=== PATIENT | female | born 1935 | race Caucasian/White ===

== ENCOUNTER → 2016-09-29 | Outpatient (CLI) | payer OTHER ==
[~2016-09-29] MED LIST: ADVIN25/60 INH; ASPI81TA28 PO; CHOL100010 PO; CITA20TA4 PO; CYAN100048 PO; GABA600T PO; IPRA1AER2 INH; LEVO100T PO; LISI-725 PO; METO1TAB68 PO; OMEG10007 PO; TIOTCAP INH; TOPI25TA10 PO
--- NOTE | 2016-09-29 15:46 | DIAGNOSTIC IMAGING REPORT ---
L-SPINE MIN 4 VIEWS ROUTINE CLINICAL HISTORY: Lower back pain. COMPARISON: None FINDINGS: There are pelvic surgical clips. There is mild S-shaped scoliosis of the lumbar spine. Vertebral body heights are maintained. There is no acute fracture. Moderate to marked multilevel disc space narrowing, osteophytosis and vacuum disc phenomenon is noted. IMPRESSION: 1. No acute lumbar spine fracture or subluxation. 2. Moderate to severe multilevel degenerative disc disease and facet arthrosis of the lumbar spine. 3. Slight anterolisthesis of L5 on S1 and retrolisthesis of L4 and L5. 4. Mild S-shaped curvature of the lumbar spine. Electronically signed by: Jacob Pickering M.D. 09/29/2016 3:44 PM Dictated Date/Time: 09/29/2016 3:43 PM
[2016-09-29 18:05] LABS: BLOOD UREA NITROGEN 28 mg/dl (7-18); BUN/CREATININE RATIO 21.6 (10-20); CALCIUM 9.1 mg/dl (8.5-10.1); CARBON DIOXIDE 27 mmol/L (21-32); CHLORIDE 106 mmol/L (98-107); GLUCOSE 103 mg/dl (70-99); SODIUM 142 mmol/L (136-145)
[2016-09-29 18:15] LABS: THYROID STIMULATING HORMONE 0.037 uIu/ml (0.300-4.500)
== END | disposition home or self-care (01) ==
LOC: C.RADPV 14:56
PROVIDERS: ATTEND Family Medicine
DX: M54.9 Dorsalgia, unspecified (principal); E03.9 Hypothyroidism, unspecified; I10 Essential (primary) hypertension

== ENCOUNTER → 2016-10-14 | Outpatient (CLI) | payer OTHER | END | disposition home or self-care (01) | LOC: C.MAMM 14:36 | PROVIDERS: ATTEND Family Medicine | DX: M81.0 Age-related osteoporosis without current pathological fracture (principal) ==

== ENCOUNTER → 2016-11-04 | Outpatient (CLI) | payer OTHER ==
--- NOTE | 2016-11-04 13:37 | DIAGNOSTIC IMAGING REPORT ---
CHEST 2 VIEWS ROUTINE CLINICAL HISTORY: ASTHMATIC BRONCHITIS dyspnea COMPARISON STUDY: 02/11/2014 FINDINGS: Mild stable cardiomegaly. Lungs are clear. Diaphragms are smooth. IMPRESSION: Mild stable cardiomegaly. The lungs are clear. Electronically signed by: Eduardo Carlson M.D. 11/04/2016 1:35 PM Dictated Date/Time: 11/04/2016 1:35 PM
[2016-11-04 17:34] LABS: BASO % 0.4 %; BASO ABS # 0.03 K/uL (0-0.2); COMPLETE YES; EOS % 2.1 %; HEMATOCRIT 31.8 % (37-47); IG% 0.3 %; LYMPH % 16.1 %; LYMPH ABS # 1.08 K/uL (1.2-3.4); MEAN CELL VOLUME 91.9 fL (80-100); MEAN CORPUSCULAR HEMOGLOBIN 30.9 pg (25-34); MEAN CORPUSCULAR HGB CONC 33.6 g/dl (32-36); MEAN PLATELET VOLUME 9.6 fL (7.4-10.4); MONO % 12.4 %; NEUT % 68.7 %; PLATELET COUNT 200 K/uL (130-400); RED BLOOD COUNT 3.46 M/uL (4.2-5.4)
[2016-11-04 17:53] LABS: BLOOD UREA NITROGEN 20 mg/dl (7-18); BUN/CREATININE RATIO 20.3 (10-20); CALCIUM 9.1 mg/dl (8.5-10.1); CARBON DIOXIDE 28 mmol/L (21-32); CHLORIDE 102 mmol/L (98-107); GLUCOSE 85 mg/dl (70-99); POTASSIUM 3.2 mmol/L (3.5-5.1); SODIUM 138 mmol/L (136-145)
== END | disposition home or self-care (01) ==
LOC: C.RADPV 12:33
PROVIDERS: ATTEND Family Medicine
DX: J45.909 Unspecified asthma, uncomplicated (principal); I10 Essential (primary) hypertension

== ENCOUNTER → 2016-11-21 | Outpatient (CLI) | payer OTHER ==
[2016-11-21 12:35] LABS: BLOOD UREA NITROGEN 27 mg/dl (7-18); BUN/CREATININE RATIO 26.6 (10-20); CALCIUM 8.6 mg/dl (8.5-10.1); CARBON DIOXIDE 29 mmol/L (21-32); CHLORIDE 107 mmol/L (98-107); GLUCOSE 95 mg/dl (70-99); POTASSIUM 4.2 mmol/L (3.5-5.1); SODIUM 140 mmol/L (136-145)
[2016-11-21 12:45] LABS: THYROID STIMULATING HORMONE 0.028 uIu/ml (0.300-4.500)
== END | disposition home or self-care (01) ==
LOC: C.LABPVFM 10:46
PROVIDERS: ATTEND Family Medicine
DX: E03.9 Hypothyroidism, unspecified (principal); E87.6 Hypokalemia

== ENCOUNTER → 2016-12-04 | Outpatient (CLI) | payer OTHER ==
--- NOTE | 2016-12-09 13:02 | CODING QUERY MEDICAL NECESSITY ---
SUPPORTING DIAGNOSIS NEEDED A supporting diagnosis is required for the test/procedure performed on this patient in order for us to be reimbursed by the patient's insurance. Please provide a supporting diagnosis for the following test/procedure listed below next to the test name along with your signature. *If there is no additional diagnosis for this patient that would support the following test/procedure please document that below next to the test/procedure. Test(s)/Procedure(s) that require a supporting diagnosis: * VITAMIN B-12 LEVEL DIAGNOSIS: * DOS: 12/04/16 Provider Signature: Date: Thank you Lyudmila Roy Health Information Management Once completed, please kindly fax back to [phone] For questions please call [phone]
== END | disposition home or self-care (01) ==
LOC: C.LABPVFM 12:08
PROVIDERS: ATTEND Family Medicine
DX: D64.9 Anemia, unspecified (principal)

== ENCOUNTER → 2016-12-29 | Outpatient (CLI) | payer OTHER ==
[~2016-12-29] MED LIST changes: +METO-479 PO; -METO1TAB68 PO
--- NOTE | 2016-12-29 15:50 | MAMMOGRAPHY REPORT ---
BILATERAL DIGITAL SCREENING MAMMOGRAM WITH CAD: 12/29/2016 CLINICAL HISTORY: Routine screening. Patient has no complaints. TECHNIQUE: Bilateral CC and MLO views were obtained. Current study was also evaluated with a Comput er Aided Detection (CAD) system. COMPARISON: Comparison is made to exams dated: 03/13/2015 mammogram, 12/30/2013 mammogram, 12/24/2012 m ammogram, 12/18/2011 mammogram, 12/17/2010 mammogram - [facility], and 01/19/2008. BREAST COMPOSITION: The tissue of both breasts is almost entirely fatty. FINDINGS: A linear scar marker overlies the anterior periareolar left breast. There are mild vascul ar calcifications and scattered benign coarse calcifications in the breasts. No suspicious mass, ar chitectural distortion or cluster of microcalcifications is seen. IMPRESSION: ACR BI-RADS CATEGORY 1: NEGATIVE There is no mammographic evidence of malignancy. A 1 year screening mammogram is recommended. The p atient will receive written notification of the results. Approximately 10% of breast cancers are not detected with mammography. A negative mammographic repor t should not delay biopsy if a clinically suggestive mass is present. Flor Diaz M.D. ay/:12/29/2016 15:44:59 Automotive Title Clerk: Ananya Alberto, [facility] letter sent: Normal 1/2 BI-RADS Code: ACR BI-RADS Category 1: Negative
== END | disposition home or self-care (01) ==
LOC: C.MAMM 13:04
PROVIDERS: ATTEND Family Medicine
DX: Z12.31 Encounter for screening mammogram for malignant neoplasm of breast (principal)

== ENCOUNTER → 2017-02-11 | Outpatient (CLI) | payer OTHER ==
[2017-02-11 12:55] LABS: BLOOD UREA NITROGEN 14 mg/dl (7-18); BUN/CREATININE RATIO 14.9 (10-20); CARBON DIOXIDE 29 mmol/L (21-32); CHLORIDE 102 mmol/L (98-107); CREATININE 0.96 mg/dl (0.60-1.20); GLUCOSE 93 mg/dl (70-99); POTASSIUM 3.7 mmol/L (3.5-5.1); SODIUM 138 mmol/L (136-145)
[2017-02-11 13:01] LABS: CALCIUM 8.6 mg/dl (8.5-10.1)
[2017-02-11 13:05] LABS: THYROID STIMULATING HORMONE 0.205 uIu/ml (0.300-4.500)
== END | disposition home or self-care (01) ==
LOC: C.LABPVFM 10:06
PROVIDERS: ATTEND Family Medicine
DX: I10 Essential (primary) hypertension (principal); E03.9 Hypothyroidism, unspecified

== ENCOUNTER → 2017-06-15 | Outpatient (CLI) | payer OTHER ==
[~2017-06-15] MED LIST changes: -METO-479 PO; +METO1TAB68 PO
[2017-06-15 18:23] LABS: BLOOD UREA NITROGEN 16 mg/dl (7-18); BUN/CREATININE RATIO 17.3 (10-20); CALCIUM 9.2 mg/dl (8.5-10.1); CARBON DIOXIDE 28 mmol/L (21-32); CHLORIDE 100 mmol/L (98-107); CREATININE 0.94 mg/dl (0.60-1.20); GLUCOSE 95 mg/dl (70-99); POTASSIUM 3.5 mmol/L (3.5-5.1); SODIUM 135 mmol/L (136-145)
== END | disposition home or self-care (01) ==
LOC: C.LABPVFM 14:08
PROVIDERS: ATTEND Family Medicine
DX: E03.9 Hypothyroidism, unspecified (principal); I10 Essential (primary) hypertension

== ENCOUNTER → 2017-09-21 | Outpatient (CLI) | payer OTHER ==
[~2017-09-21] MED LIST changes: +METO-479 PO; -METO1TAB68 PO
[2017-09-21 18:34] LABS: BLOOD UREA NITROGEN 14 mg/dl (7-18); CALCIUM 8.8 mg/dl (8.5-10.1); CARBON DIOXIDE 29 mmol/L (21-32); CREATININE 1.08 mg/dl (0.60-1.20); GLUCOSE 98 mg/dl (70-99); POTASSIUM 3.5 mmol/L (3.5-5.1); SODIUM 133 mmol/L (136-145)
== END | disposition home or self-care (01) ==
LOC: C.LABPVFM 15:02
PROVIDERS: ATTEND Family Medicine
DX: E03.9 Hypothyroidism, unspecified (principal)

== ENCOUNTER → 2017-11-13 | Outpatient (CLI) | payer OTHER ==
--- NOTE | 2017-11-13 15:12 | DIAGNOSTIC IMAGING REPORT ---
TWO VIEW CHEST CLINICAL HISTORY: Edema. FINDINGS: PA and lateral chest radiographs are compared to study dated 11/04/2016. The heart is markedly enlarged and there is atherosclerotic calcification of the thoracic aorta. The pulmonary vasculature is noncongested. Enlargement of the central pulmonary arteries suggests pulmonary artery hypertension. Chronic interstitial thickening is similar to previous. No airspace consolidation or pleural effusion is identified. There is no pneumothorax. The skeletal structures are osteopenic. Degenerative change is seen throughout the thoracic spine. IMPRESSION: Cardiomegaly with no acute cardiopulmonary abnormality. Electronically signed by: Odin Luis M.D. 11/13/2017 3:11 PM Dictated Date/Time: 11/13/2017 3:10 PM
== END | disposition home or self-care (01) ==
LOC: C.RADPV 14:52
PROVIDERS: ATTEND Family Medicine
DX: I51.7 Cardiomegaly (principal)

== ENCOUNTER → 2017-12-08 | Outpatient (CLI) | payer OTHER | END | disposition home or self-care (01) | LOC: C.LABPVFM 11:03 | PROVIDERS: ATTEND Family Medicine | DX: E03.9 Hypothyroidism, unspecified (principal) ==

== ENCOUNTER → 2017-12-31 | Outpatient (CLI) | payer OTHER ==
--- NOTE | 2018-01-04 07:49 | MAMMOGRAPHY REPORT ---
BILATERAL DIGITAL SCREENING MAMMOGRAM TOMOSYNTHESIS WITH CAD: 12/31/2017 CLINICAL HISTORY: Routine screening. Patient has no complaints. TECHNIQUE: Breast tomosynthesis in addition to standard 2D mammography was performed. Current study was also evaluated with a Computer Aided Detection (CAD) system. COMPARISON: Comparison is made to exams dated: 12/29/2016 mammogram, 03/13/2015 mammogram, 12/30/2013 ma mmogram, 12/24/2012 mammogram, 12/18/2011 mammogram, and 12/17/2010 mammogram - [facility]. BREAST COMPOSITION: The tissue of both breasts is almost entirely fatty. FINDINGS: No suspicious masses, calcifications, or areas of architectural distortion are noted in ei ther breast. There has been no significant interval change compared to prior exams. Scattered bilate ral benign-appearing calcifications are again noted. A linear scar marker denotes a scar on the left anterior breast. IMPRESSION: ACR BI-RADS CATEGORY 2: BENIGN There is no mammographic evidence of malignancy. A 1 year screening mammogram is recommended. The pa tient will receive written notification of the results. Approximately 10% of breast cancers are not detected with mammography. A negative mammographic report should not delay biopsy if a clinically suggestive mass is present. Doris Baker M.D. ah/:12/31/2017 15:05:01 Director Of Instructional Technology: Ludy Pacheco M, [facility] letter sent: Normal 1/2 BI-RADS Code: ACR BI-RADS Category 2: Benign
== END | disposition home or self-care (01) ==
LOC: C.MAMM 12:58
PROVIDERS: ATTEND Family Medicine
DX: Z12.31 Encounter for screening mammogram for malignant neoplasm of breast (principal)

== ENCOUNTER 2019-07-24 09:55 | Inpatient (IN) ==
[2019-07-24] MEDS ORDERED: ALBUT/IPRATROP 3MG/0.5MG NEB 3 ML VIAL NEB STA (10:15)
[2019-07-24 10:24] LABS: Basophils # (auto) 0.01 K/uL (0-0.2); Basophils % (auto) 0.2 %; Eosinophils # (auto) 0.02 K/uL (0-0.5); Eosinophils % (auto) 0.4 %; Hematocrit (blood only) 33.6 % (37-47); Hemoglobin 11.2 g/dL (12.0-16.0); Immature Granulocytes # (auto) 0.01 K/uL (0.00-0.02); Immature Granulocytes % (auto) 0.2 %; Lymphocytes # (auto) 0.64 K/uL (1.2-3.4); Lymphocytes % (auto) 13.6 %; Mean Corpuscular Hemoglobin 31.5 pg (25-34); Mean Corpuscular Hgb Conc 33.3 g/dL (32-36); Mean Corpuscular Volume 94.6 fL (80-100); Mean Platelet Volume 9.6 fL (7.4-10.4); Monocytes % (auto) 10.6 %; Neutrophils # (auto) 3.54 K/uL (1.4-6.5); Platelet Count 194 K/uL (130-400); RDW Coefficient of Variation 13.9 % (11.5-14.5); RDW Standard Deviation 48.4 fL (36.4-46.3); Red Blood Count 3.55 M/uL (4.2-5.4); White Blood Count 4.72 K/uL (4.8-10.8)
[2019-07-24 10:38] LABS: Appearance Urine Turbid (Clear); Blood Urine 1+ (Negative); Color Urine Dark Yellow; Epithelial Cell Urine Auto >30 /lpf (0-5); Glucose Urine UA Negative (Negative); Ketones Urine Trace (Negative); Leukocyte Esterase Urine 3+ (Negative); Nitrite Urine Negative (Negative); Protein Urine 1+ (Negative); Specific Gravity Urine 1.026 (1.000-1.030); Urobilinogen Urine Negative (Negative); WBC Urine Automated >30 /hpf (0-5); pH Urine 5.5 (4.5-7.5)
[2019-07-24 10:41] LABS: Alanine Aminotransferase 33 U/L (12-78); Albumin Level 3.4 gm/dl (3.4-5.0); Aspartate Aminotransferase 66 U/L (15-37); BUN Creatinine Ratio 23.1 (10-20); Blood Urea Nitrogen 22 mg/dl (7-18); Carbon Dioxide 22 mmol/L (21-32); Chloride 109 mmol/L (98-107); Creatinine Clr Calc Pharmacy 33.2 ml/min; Est GFR (African American) 66.8; Est GFR (Non-African American) 57.6; Glucose 101 mg/dl (70-99); Magnesium 2.1 mg/dl (1.8-2.4); Potassium 3.8 mmol/L (3.5-5.1); Sodium 141 mmol/L (136-145)
[2019-07-24 10:52] LABS: Albumin Globulin Ratio 0.9 (0.9-2); Alkaline Phosphatase 52 U/L (45-117); Bilirubin,Total 0.6 mg/dl (0.2-1); Globulin 3.7 gm/dl (2.5-4.0); Total Protein 7.1 gm/dl (6.4-8.2); Troponin I < 0.015 ng/ml (0-0.045)
[2019-07-24 10:55] LABS: Bilirubin Urine Negative (Negative); Ictotest Urine Negative (Negative)
[2019-07-24 10:57] LABS: Bacteria Urine Automated 2+ (Negative)
--- NOTE | 2019-07-24 10:57 | CT Scan Report ---
CT head/brain wo con CLINICAL HISTORY: 83 years-old Female with fall, hit head. Acute head injury status post fall TECHNIQUE: Multiple axial CT images of the head were obtained without contrast. A dose lowering tech nique was utilized adhering to the principles of ALARA. CT DOSE: 537.48 mGy.cm COMPARISON: Head CT 02/11/2014 FINDINGS: No acute intracranial hemorrhage, midline shift, intracranial mass, hydrocephalus, territorial ischem ia or abnormal extra-axial collection. Age-related involutional changes. Remote right thalamic lacuna r infarction. Patchy white matter hypodensities suggest chronic microvascular ischemic disease. Cereb ral vascular calcifications noted. The calvarium is intact. Prior bilateral cataract repair. The paranasal sinuses, mastoid air cells, a nd middle ear cavities are clear. IMPRESSION: No acute intracranial abnormality or calvarial fracture. The above report was generated using voice recognition software. It may contain grammatical, syntax o r spelling errors. Electronically signed by: Dillon Lockhart M.D. 07/24/2019 10:55 AM
--- NOTE | 2019-07-24 11:09 | XRay Report ---
XR chest 1V portable HISTORY: 83 years-old Female weakness acute weakness COMPARISON: Chest radiograph 01/24/2018 TECHNIQUE: Portable AP view of the chest FINDINGS: Cardiac silhouette is enlarged, unchanged. Calcified plaque of the thoracic aortic arch. Mild promine nce of the pulmonary arteries redemonstrated along with chronic interstitial coarsening. Unchanged bl unting of the right costophrenic angle. No pneumothorax, large pleural effusion or new focal airspace consolidation. Degenerative changes of the shoulders and spine. IMPRESSION: Chronic findings as above without acute process. The above report was generated using voice recognition software. It may contain grammatical, syntax o r spelling errors. Electronically signed by: Dillon Lockhart M.D. 07/24/2019 11:08 AM
[2019-07-24] MEDS ORDERED: CEFEPIME 2,000 MG/20 ML VIAL IV STA (11:37)
[2019-07-24] MEDS ORDERED: FUROSEMIDE 40 MG/4 ML VIAL IV STA (11:38)
[2019-07-24 11:50] LABS: Influenza A virus by PCR Neg for Influ A (Neg); Influenza B virus by PCR Neg for Influ B (Neg)
--- NOTE | 2019-07-24 12:31 | History & Physical Report ---
Date of Service July 24, 2019 Assessment & Plan (1) Weakness: (2) Acute UTI (urinary tract infection): Admits to inpatient PCU on telemetry. Vital signs every 4 hours. Continue cefepime that was started in the ER and would cover for Pseudomonas infection that was present in January 2019 inpatient urine. Follow-up urine cultures. Monitor CBC and CMP daily. BNP pending. Monitor closely p.o. intake and IV fluids to prevent volume overload. DVT prophylaxis Lovenox 40 mg subcu daily. Full code Present on Admission?: Yes (3) Acute bronchitis: Continue low dose of azithromycin to 250 mg as directed. Continue fluticasone 200 MCG's Vilanterol 25 MCG's/dose inhalation 1 puff daily. Continue ipratropium 20 MCG/albuterol 100 MCG's 1 puff inhalation every 6 hours as needed. Present on Admission?: Yes (4) Weight loss: Will consult RD for nutritional assessment. Present on Admission?: Yes (5) Hemifacial spasm: Patient has a right hemifacial spasm for several years. Patient takes topiramate 200 mg p.o. twice daily daily. Continue this medication. Present on Admission?: Yes (6) Hypertension: Continue home medicine metoprolol succinate 100 mg p.o. daily, lisinopril 40 mg p.o. q. a.m. aspirin 81 mg delayed release Present on Admission?: Yes (7) Hypothyroidism: TSH checked in the ER within normal limits, continue home dose of levothyroxine 88 MCG's p.o. every morning Present on Admission?: Yes (8) COPD (chronic obstructive pulmonary disease): As above-see acute bronchitis. Present on Admission?: Yes (9) CHF (congestive heart failure): Pending BNP. Patient appears to be mildly volume overloaded. Will switch p.o. furosemide 40 mg p.o. to 20 IV. Present on Admission?: Yes History of Present Illness Chief Complaint: Cough, generalized weakness and frequent falls Primary Care Provider: Kimberly Michele MD Patient is a 83 years old female with past medical history of hypertension, congestive heart failure, hypothyroidism, COPD, hemifacial spasm, osteoporosis, who was brought by her daughter to the emergency room with a complaint that patient fell 4 times in the past few days. Daughter reports that she was sleeping when this occurred and she did not notice her mother falling but mother reported that to her in the morning. Patient said that her legs were not listening to her and this was related purely to mechanical fall. Patient reports no hypotension or blacking out or any episode of syncope. Patient said she feels otherwise in good health. Patient appetite is okay but she appears very cachectic. Patient has hemifacial spasm for couple of years and she takes topiramate for it. Patient denies fever, chills, chest pain, shortness of breath, abdominal pain, frequency, urgency, hematemesis hematuria or dysuria. Labs are reviewed: Which shows WBCs 4.72, hemoglobin 11.2, hematocrit 33.6, platelets 194, PT 10.9, PTT 25.1, sodium 141, potassium 3.8, chloride 109, BUN 22, GFR 57.6, magnesium 2.1, AST 66, ALT 33 troponin 0 0.015, TSH 1.26. Urine is turbid, with negative nitrates +3+ positive leukocyte esterase white blood cell over 30,WBCs of 14.89, and over 30 epithelial cells 2+ bacteria which appears to be not a clean-catch urine. Influenza A and B both negative. Decision was made to admit patient for urinary tract infection probably Pseudomonas(which was positive in the January 2019 and pansensitive), physical and occupational therapy and possible [facility] additional physical and Occupational Therapy. Allergies Allergy/AdvReac Type Severity Reaction Status Date / Time baclofen Allergy Unknown Tremor Verified 07/24/19 10:27 levetiracetam AdvReac Intermediate MADE FEEL Verified 07/24/19 10:27 FUNNY Home Medications Home Medications Medication Instructions Recorded Confirmed Type aspirin 81 mg tablet,delayed 81 mg PO DAILY #30 tab 02/07/19 07/24/19 Rx release cholecalciferol (vitamin D3) 5,000 5,000 units PO DAILY #30 cap 02/07/19 07/24/19 Rx unit capsule multivitamin 1 tab PO DAILY #30 tab 02/07/19 07/24/19 Rx omega-3 fatty acids 1,000 mg 1,000 mg PO DAILY #30 cap 02/07/19 07/24/19 Rx capsule fluticasone furoate 200 1 puffs INH DAILY #60 ea 02/10/19 07/24/19 Rx mcg-vilanterol 25 mcg/dose inhalation powder cyanocobalamin (vitamin B-12) 1,000 mcg PO DAILY #30 tab 03/22/19 07/24/19 Rx 1,000 mcg tablet furosemide 40 mg tablet 40 mg PO QAM #30 tab 05/24/19 07/24/19 Rx ipratropium 20 mcg-albuterol 100 1 puffs INH Q6H PRN #4 gm 06/07/19 07/24/19 Rx mcg/actuation mist for inhalation topiramate 200 mg tablet 200 mg PO BID 30 Days #60 tab 06/13/19 07/24/19 Rx azithromycin 250 mg PO UD 07/24/19 07/24/19 History levothyroxine 88 mcg PO QAM 07/24/19 07/24/19 History lisinopril 40 mg PO QAM 07/24/19 07/24/19 History metoprolol succinate 100 mg PO DAILY 07/24/19 07/24/19 History potassium chloride 20 meq PO DAILY 07/24/19 07/24/19 History Past Med/Surg History Medical History Blood in stool (Acute) Facial nerve disorder (Acute) Hemifacial spasm (Chronic) Lower leg edema (Chronic) Osteoporosis (Acute) Social History Current Living Situation: Family current occupational status: retired Feels Safe at Home: Yes Smoking Status: Former smoker Review of Systems Review of Systems: All systems reviewed & are unremarkable except as noted in HPI & below Physical Exam Constitutional: WD/WN, vitals as above well developed, + cachectic and + frail appearing Eyes: PERRL, conjunctivae normal, anicteric sclerae ENMT: external ear and nose normal, oropharynx normal Neck: trachea midline, no thyromegaly Respiratory: normal respiratory effort, lungs clear to auscultation Cardiovascular: Heart Sounds: normal S1 and normal S2 Palpation: + palpable S3 Vessels: dorsalis pedis pulses present Extremities: + pedal edema Gastrointestinal (Abdomen): normal bowel sounds, soft, nontender, no hepatosplenomegaly Musculoskeletal: no cyanosis or clubbing, extremities motor strength 5/5 Neurologic: patellar DTR's 2+ bilat, sensation intact Psychiatric: A+Ox3, euthymic affect Lymphatic: no cervical or axillary lymphadenopathy Results & Data Vital Signs (Past 12 Hours) Vital Signs Temp Pulse Pulse Resp BP BP Pulse Ox 07/24/19 12:13 83 20 158/84 H 99 07/24/19 11:13 76 22 135/70 95 07/24/19 10:36 72 20 142/74 H 99 07/24/19 10:32 75 16 95 07/24/19 10:11 95 07/24/19 10:06 36.9 C 77 20 140/82 94 Code Status & VTE Plan Code Status Full code VTE Prophylaxis Plan VTE Prophylaxis will be ordered: Yes PG Care Time/CCT Total # of Minutes Spent Total Time Spent with Patient: Total time spent is greater than 50% in coordination of care (as documented) at patient's floor/unit and/or counseling patient:
[2019-07-24] MEDS ORDERED: MAGNESIUM HYDROXIDE SUSP 30 ML UDC PO PRN (13:56)
[2019-07-24] MEDS ORDERED: SODIUM CHLORIDE 0.9% 1000ML 1,000 ML IV SCH (13:56)
[2019-07-24] MEDS ORDERED: ENOXAPARIN INJ 40 MG/0.4 ML SYR SQ SCH (13:56)
[2019-07-24] MEDS ORDERED: IPRATROPIUM BROMIDE/ALBUTEROL respimat INH INH PRN (13:56)
[2019-07-24] MEDS ORDERED: ACETAMINOPHEN 325 MG TAB PO PRN (13:56)
[2019-07-24] MEDS ORDERED: ALUMINUM/MAGNESIUM SUSP 30 ML UDC PO PRN (13:56)
[2019-07-24] MEDS ORDERED: POLYETHYLENE (MIRALAX) 17 GM PACK PO PRN (13:56)
[2019-07-24] MEDS: ASPIRIN 81 MG ECTAB PO SCH (16:12)
--- NOTE | 2019-07-24 17:45 | Emergency Department Note ---
Entered by Johana Sandoval acting as a scribe for History of Present Illness General Chief complaint: Fall Time Seen by Provider: 07/24/19 10:02 Source: patient and family Mode of arrival: EMS Limitations: no limitations History of Present Illness Provider complaint: Fall Onset (ago): hour(s) (last night) Location: head Pain Consistency: + other (4 episodes) Quality: + other (fall) Associated symptoms: + confusion, + weakness and + other (Additional symptoms: chronic diarrhea, lower extremity edema, chest congestion. Denies: pain, trouble breathing, urinary symptoms, muscle aches); no nausea/vomiting and no syncope Treatments prior to arrival: none The patient is an 83 year old female with a history of hypertension, hypothyroidism, COPD, asthma, bronchitis, pneumonia, and CHF who presents to the Emergency Room with complaints of 4 episodes of falls occurring last night. The patient reports that she fell 4 times because she was too weak to walk. Per family, the patient has been complaining of progressive weakness of a while, and the patient states that she has never felt this weak before. She notes that she hit her head during these falls but did not experience any syncope. She currently denies any pain in her head and elsewhere. One of her family members mentions that the patient lives with her and that she was able to help the patient up after these falls. The patient reports that she saw her PCP a few days ago for bronchitis and that she is currently on an antibiotic for chest congestion. She denies any trouble breathing. The patient also complains of chronic diarrhea, and her family adds that the patient has had moments of confusion characterized by difficulty finding words and increased lower extremity edema compared to baseline. They note that she does not eat much and did not eat anything this morning. The patient otherwise denies any nausea, vomi ting, urinary symptoms, and muscle aches. Her family reports that she takes Lasix every once in a while. Home Medications Home Medications Medication Instructions Recorded Confirmed Type aspirin 81 mg tablet,delayed 81 mg PO DAILY #30 tab 02/07/19 07/24/19 Rx release cholecalciferol (vitamin D3) 5,000 5,000 units PO DAILY #30 cap 02/07/19 07/24/19 Rx unit capsule multivitamin 1 tab PO DAILY #30 tab 02/07/19 07/24/19 Rx omega-3 fatty acids 1,000 mg 1,000 mg PO DAILY #30 cap 02/07/19 07/24/19 Rx capsule fluticasone furoate 200 1 puffs INH DAILY #60 ea 02/10/19 07/24/19 Rx mcg-vilanterol 25 mcg/dose inhalation powder cyanocobalamin (vitamin B-12) 1,000 mcg PO DAILY #30 tab 03/22/19 07/24/19 Rx 1,000 mcg tablet furosemide 40 mg tablet 40 mg PO QAM #30 tab 05/24/19 07/24/19 Rx ipratropium 20 mcg-albuterol 100 1 puffs INH Q6H PRN #4 gm 06/07/19 07/24/19 Rx mcg/actuation mist for inhalation topiramate 200 mg tablet 200 mg PO BID 30 Days #60 tab 06/13/19 07/24/19 Rx azithromycin 250 mg PO UD 07/24/19 07/24/19 History levothyroxine 88 mcg PO QAM 07/24/19 07/24/19 History lisinopril 40 mg PO QAM 07/24/19 07/24/19 History metoprolol succinate 100 mg PO DAILY 07/24/19 07/24/19 History potassium chloride 20 meq PO DAILY 07/24/19 07/24/19 History Allergies Allergy/AdvReac Type Severity Reaction Status Date / Time baclofen Allergy Unknown Tremor Verified 07/24/19 10:27 levetiracetam AdvReac Intermediate MADE FEEL Verified 07/24/19 10:27 FUNNY Past Med/Surg History Medical History Blood in stool (Acute) Facial nerve disorder (Acute) Hemifacial spasm (Chronic) Lower leg edema (Chronic) Osteoporosis (Acute) Social History Preferred Language: Sami Communication Ability: Effective 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 and A total of 10 systems reviewed and were otherwise negative Physical Exam Vital Signs Vital Signs - 24 hr 07/24/19 10:06 07/24/19 10:11 07/24/19 10:32 Temperature 36.9 C Temperature Source Oral Pulse Rate 77 Pulse Rate [Apical] 75 Respiratory Rate 20 16 Respiratory Effort / Characteristics Non-Labored Spontaneous Respiratory Depth Normal Blood Pressure 140/82 Blood Pressure [Left Arm] Blood Pressure Mean 101 Blood Pressure Mean [Left Arm] Pulse Oximetry 94 95 95 Oxygen Delivery Method Room Air Room Air Room Air Sepsis Recent Fever Within 48 Hours No Sepsis New/Unexplained Change in Mental Status No Sepsis Action Taken by Nursing No Action Required 07/24/19 10:36 07/24/19 11:13 07/24/19 12:13 Temperature Temperature Source Pulse Rate Pulse Rate [Apical] 72 76 83 Respiratory Rate 20 22 20 Respiratory Effort / Characteristics Spontaneous Non-Labored Spontaneous Respiratory Depth Normal Normal Blood Pressure Blood Pressure [Left Arm] 142/74 H 135/70 158/84 H Blood Pressure Mean Blood Pressure Mean [Left Arm] 96 91 108 Pulse Oximetry 99 95 99 Oxygen Delivery Method Nebulizer Room Air Room Air Sepsis Recent Fever Within 48 Hours Sepsis New/Unexplained Change in Mental Status Sepsis Action Taken by Nursing GENERAL: Awake, alert, weak-appearing, in no distress HENT: Normocephalic, atraumatic. EYES: Normal conjunctiva. Sclera non-icteric. NECK: Supple. No nuchal rigidity. RESPIRATORY: Clear to auscultation with diminished bases. Normal respiratory effort. CARDIAC: Normal rate. Normal rhythm. Extremities warm and well perfused. GI: Soft, non-distended. No tenderness to palpation. RECTAL: Deferred. MUSCULOSKELETAL: Atraumatic. Chest examination reveals no tenderness. LOWER EXTREMITIES: Calves are equal size bilaterally and 2+ pedal edema. No crepitus. NEURO: No gross sensory or motor deficits noted. No facial droop. No slurred speech. SKIN: Warm and dry. No rash or jaundice noted. Course Course 1004: The patient was evaluated in room B5, and a complete history and physical examination were performed. 1142: I checked on the patient and updated her and her family on her results. The patient is agreeable to the treatment plan. 1147: I reviewed the patient's case with Dr. Hanson - Hospitalist, [facility]. Dr. Hanson will evaluate the patient for further management. Consultations Consultation #1: I reviewed the patient's case with Dr. Hanson - Hospitalist, [facility]. Dr. Hanson will evaluate the patient for further management. Time: 11:47 Administered Medications Aspirin (Ecotrin Ectab) 81 mg PO DAILY CARLOS Stop: 08/23/19 13:55 Last Admin: 07/24/19 16:12 Dose: 81 mg Documented by: [id number] Sodium Chloride (Nss 1000ml) 1,000 mls @ 80 mls/hr IV .[id number] CARLOS Stop: 07/25/19 02:25 Last Admin: 07/24/19 15:20 Dose: 80 mls/hr Documented by: [id number] Miscellaneous (Order Awaiting Action) 1 ea N/A QS CARLOS Stop: 08/23/19 15:59 Last Admin: 07/24/19 16:13 Dose: Not Given Documented by: [id number] Discontinued Medications Albuterol (Duoneb) 3 ml NEB NOW STA Stop: 07/24/19 10:16 Last Admin: 07/24/19 10:30 Dose: 3 ml Documented by: [id number] Furosemide (Lasix) 40 mg IV NOW STA Stop: 07/24/19 11:39 Last Admin: 07/24/19 12:11 Dose: 40 mg Documented by: [id number] Cefepime HCl (Maxipime) 2,000 mg in 20 mls @ 5 mls/min IV NOW STA; Protocol Stop: 07/24/19 11:40 Last Admin: 07/24/19 12:11 Dose: 5 mls/min Documented by: [id number] Medical Decision Making Differential Diagnosis Differential diagnosis: Etiologies such as metabolic, infection, hypo/hyperglycemia, electrolyte abnormalities, cardiac sources, intracerebral event, toxicologic, neurologic, as well as others were entertained. Medical Records Attestation: I reviewed the patient's medical records. Home Medications Current Medication List: was personally reviewed by me Laboratory Data Attestation: I reviewed the patient's lab results. Result diagrams: 07/24/19 10:00 07/24/19 10:00 Lab Results 07/24/19 07/24/19 07/24/19 Range/Units 10:00 10:00 10:20 WBC 4.72 L (4.8-10.8) K/uL RBC 3.55 L (4.2-5.4) M/uL Hgb 11.2 L (12.0-16.0) g/dL Hct 33.6 L (37-47) % MCV 94.6 (80-100) fL MCH 31.5 (25-34) pg MCHC 33.3 (32-36) g/dL RDW Std Deviation 48.4 H (36.4-46.3) fL RDW Coeff of Phan 13.9 (11.5-14.5) % Plt Count 194 (130-400) K/uL MPV 9.6 (7.4-10.4) fL Immature Gran % (Auto) 0.2 % Neut % (Auto) 75.0 % Lymph % (Auto) 13.6 % Geary % (Auto) 10.6 % Eos % (Auto) 0.4 % Baso % (Auto) 0.2 % Immature Gran # (Auto) 0.01 (0.00-0.02) K/uL Neut # (Auto) 3.54 (1.4-6.5) K/uL Lymph # (Auto) 0.64 L (1.2-3.4) K/uL Geary # (Auto) 0.50 (0.11-0.59) K/uL Eos # (Auto) 0.02 (0-0.5) K/uL Baso # (Auto) 0.01 (0-0.2) K/uL Sodium 141 (136-145) mmol/L Potassium 3.8 (3.5-5.1) mmol/L Chloride 109 H (98-107) mmol/L Carbon Dioxide 22 (21-32) mmol/L Anion Gap 10.0 (3-11) BUN 22 H (7-18) mg/dl Creatinine 0.93 (0.6-1.2) mg/dl Est Cr Clr Drug Dosing 33.2 ml/min Est GFR ( Amer) 66.8 Est GFR (Non-Af Amer) 57.6 BUN/Creatinine Ratio 23.1 H (10-20) Glucose 101 H (70-99) mg/dl Calcium 9.0 (8.5-10.1) mg/dl Magnesium 2.1 (1.8-2.4) mg/dl Total Bilirubin 0.6 (0.2-1) mg/dl AST 66 H (15-37) U/L ALT 33 (12-78) U/L Alkaline Phosphatase 52 (45-117) U/L Troponin I < 0.015 (0-0.045) ng/ml NT-Pro-B Natriuret Pep 1261 (0-1800) pg/ml Total Protein 7.1 (6.4-8.2) gm/dl Albumin 3.4 (3.4-5.0) gm/dl Globulin 3.7 (2.5-4.0) gm/dl Albumin/Globulin Ratio 0.9 (0.9-2) TSH 1.260 (0.300-4.500) uIu/ml Urine Color Urine Appearance (Clear) Urine pH (4.5-7.5) Ur Specific Delta (1.000-1.030) Urine Protein (Negative) Urine Glucose (UA) (Negative) Urine Ketones (Negative) Urine Blood (Negative) Urine Nitrite (Negative) Urine Bilirubin (Negative) Urine Urobilinogen (Negative) Ur Leukocyte Esterase (Negative) Urine WBC (Auto) (0-5) /hpf Urine RBC (Auto) (0-4) /hpf U Hyaline Cast (Auto) (0-5) /lpf U Epithel Cells (Auto) (0-5) /lpf Urine Bacteria (Auto) (Negative) Urine Yeast Influenza Type A (PCR) (Neg) Influenza Type B (PCR) (Neg) 07/24/19 07/24/19 Range/Units 10:30 10:30 WBC (4.8-10.8) K/uL RBC (4.2-5.4) M/uL Hgb (12.0-16.0) g/dL Hct (37-47) % MCV (80-100) fL MCH (25-34) pg MCHC (32-36) g/dL RDW Std Deviation (36.4-46.3) fL RDW Coeff of Phan (11.5-14.5) % Plt Count (130-400) K/uL MPV (7.4-10.4) fL Immature Gran % (Auto) % Neut % (Auto) % Lymph % (Auto) % Geary % (Auto) % Eos % (Auto) % Baso % (Auto) % Immature Gran # (Auto) (0.00-0.02) K/uL Neut # (Auto) (1.4-6.5) K/uL Lymph # (Auto) (1.2-3.4) K/uL Geary # (Auto) (0.11-0.59) K/uL Eos # (Auto) (0-0.5) K/uL Baso # (Auto) (0-0.2) K/uL Sodium (136-145) mmol/L Potassium (3.5-5.1) mmol/L Chloride (98-107) mmol/L Carbon Dioxide (21-32) mmol/L Anion Gap (3-11) BUN (7-18) mg/dl Creatinine (0.6-1.2) mg/dl Est Cr Clr Drug Dosing ml/min Est GFR ( Amer) Est GFR (Non-Af Amer) BUN/Creatinine Ratio (10-20) Glucose (70-99) mg/dl Calcium (8.5-10.1) mg/dl Magnesium (1.8-2.4) mg/dl Total Bilirubin (0.2-1) mg/dl AST (15-37) U/L ALT (12-78) U/L Alkaline Phosphatase (45-117) U/L Troponin I (0-0.045) ng/ml NT-Pro-B Natriuret Pep (0-1800) pg/ml Total Protein (6.4-8.2) gm/dl Albumin (3.4-5.0) gm/dl Globulin (2.5-4.0) gm/dl Albumin/Globulin Ratio (0.9-2) TSH (0.300-4.500) uIu/ml Urine Color Dark Yellow Urine Appearance Turbid A (Clear) Urine pH 5.5 (4.5-7.5) Ur Specific Delta 1.026 (1.000-1.030) Urine Protein 1+ H (Negative) Urine Glucose (UA) Negative (Negative) Urine Ketones Trace H (Negative) Urine Blood 1+ H (Negative) Urine Nitrite Negative (Negative) Urine Bilirubin Negative (Negative) Urine Urobilinogen Negative (Negative) Ur Leukocyte Esterase 3+ H (Negative) Urine WBC (Auto) >30 H (0-5) /hpf Urine RBC (Auto) 5-10 H (0-4) /hpf U Hyaline Cast (Auto) 1-5 (0-5) /lpf U Epithel Cells (Auto) >30 H (0-5) /lpf Urine Bacteria (Auto) 2+ H (Negative) Urine Yeast Not Reportable Influenza Type A (PCR) Neg for Influ A (Neg) Influenza Type B (PCR) Neg for Influ B (Neg) Imaging Data Radiologist's Impression: Radiology results as stated below per my review and the radiologist's interpretation: XR chest 1V portable HISTORY: 83 years-old Female weakness acute weakness COMPARISON: Chest radiograph 01/24/2018 TECHNIQUE: Portable AP view of the chest FINDINGS: Cardiac silhouette is enlarged, unchanged. Calcified plaque of the thoracic aortic arch. Mild prominence of the pulmonary arteries redemonstrated along with chronic interstitial coarsening. Unchanged blunting of the right costophrenic angle. No pneumothorax, large pleural effusion or new focal airspace consolidation. Degenerative changes of the shoulders and spine. IMPRESSION: Chronic findings as above without acute process. The above report was generated using voice recognition software. It may contain grammatical, syntax or spelling errors. Electronically signed by: Dillon Lockhart M.D. 07/24/2019 11:[address] head/brain wo con CLINICAL HISTORY: 83 years-old Female with fall, hit head. Acute head injury status post fall TECHNIQUE: Multiple axial CT images of the head were obtained without contrast. A dose lowering technique was utilized adhering to the principles of ALARA. CT DOSE: 537.48 mGy.cm COMPARISON: Head CT 02/11/2014 FINDINGS: No acute intracranial hemorrhage, midline shift, intracranial mass, hydrocephalus, territorial ischemia or abnormal extra-axial collection. Age-related involutional changes. Remote right thalamic lacunar infarction. Patchy white matter hypodensities suggest chronic microvascular ischemic disease. Cerebral vascular calcifications noted. The calvarium is intact. Prior bilateral cataract repair. The paranasal sinuses, mastoid air cells, and middle ear cavities are clear. IMPRESSION: No acute intracranial abnormality or calvarial fracture. The above report was generated using voice recognition software. It may contain grammatical, syntax or spelling errors. Electronically signed by: Dillon Lockhart M.D. 07/24/2019 10:55 AM ECG Data Attestation: I personally reviewed and interpreted this ECG as follows: Indication: + weakness Rate (beats per minute): 76 Rhythm: + normal sinus ECG [place]: + Left axis deviation ECG ST segments: + ST depression (slight lateral); no ST elevation ECG Findings: no PVCs Blood Pressure Blood Pressure Findings: Elevated blood pressure Blood Pressure Disposition: further management by hospitalist NICK Narrative Patient is a 83-year-old female with a past medical history including osteoporosis and facial nerve disorder in addition to hypertension. Recently being treated for bronchitis with azithromycin presenting to the emergency department today with reports of 4 falls overnight and weakness. No report of pain by the patient. Evidently some intermittent confusion but fairly little oriented right now. Complains of some chest congestion. Did not spend any significant amount of time the floor last night. Too weak to ambulate and end orse some worsening lower extremity edema. Is currently on the azithromycin. Denies urinary symptoms or fevers. Afebrile here. Does have 2+ lower extremity edema. Chest x-ray completed look for signs of fluid overload or pneumonia. CXR without signifigant findings. Influenza testing sent. Basic labs are ordered including troponin EKG. Denying active chest pain lower suspicion for acute ACS PE or dissection however. CT the head was completed given reports that she struck her head during the falls and this was without acute traumatic injury. Laboratory studies show no significant leukocytosis and stable baseline anemia. Renal function appears stable without significant elect light abnormalities. No evidence of troponin elevation or TSH abnormality. Urinalysis concerning for possible UTI. Could indicate the underlying reason for her worsening weakness. History of pseudomonal UTI. Pending differentiation started on cefepime. Given her weakness and difficulty in feeling as well as the falls discussed with patient and family believe observation here further in the hospital would be warranted for improvement. Discussed with the hospitalist. Impression & Plan Weakness, Falls, Acute UTI (urinary tract infection) Discharge Plan Visit Data *Final* Discharge Date/Time: 07/24/19 13:21 Chief Complaint: Fall ED Provider: Marquise Lester Discharge Problem: Weakness, Falls, Acute UTI (urinary tract infection) Patient Disposition: Admitted As Inpatient Discharge Instructions Interventions: ED Discharge Assessment Last Done: 07/24/19 13:21 Discharge Problem: Falls Qualifiers: Encounter type: initial encounter Qualified Code(s): W19.XXXA - Unspecified fall, initial encounter The scribe's documentation has been prepared under my direction and personally reviewed by me in its entirety. I confirm that the note above accurately reflects all work, treatment, procedures, and medical decision making performed by me.
[2019-07-24] MEDS: TOPIRAMATE 100 MG TAB PO SCH (21:56)
[2019-07-24] MEDS: HEPARIN SOD 5,000 UNIT/0.5 ML VIAL SC SCH (21:57)
[2019-07-25] MEDS: LEVOTHYROXINE SODIUM 88 MCG TABLET PO SCH (06:23)
[2019-07-25 06:35] LABS: Basophils # (auto) 0.01 K/uL (0-0.2); Basophils % (auto) 0.3 %; Eosinophils # (auto) 0.12 K/uL (0-0.5); Hematocrit (blood only) 28.5 % (37-47); Hemoglobin 9.8 g/dL (12.0-16.0); Immature Granulocytes # (auto) 0.01 K/uL (0.00-0.02); Immature Granulocytes % (auto) 0.3 %; Lymphocytes # (auto) 0.62 K/uL (1.2-3.4); Lymphocytes % (auto) 15.7 %; Mean Corpuscular Hgb Conc 34.4 g/dL (32-36); Mean Corpuscular Volume 93.1 fL (80-100); Mean Platelet Volume 8.7 fL (7.4-10.4); Monocytes # (auto) 0.42 K/uL (0.11-0.59); Monocytes % (auto) 10.7 %; Neutrophils # (auto) 2.76 K/uL (1.4-6.5); Platelet Count 170 K/uL (130-400); RDW Coefficient of Variation 13.8 % (11.5-14.5); RDW Standard Deviation 47.2 fL (36.4-46.3); Red Blood Count 3.06 M/uL (4.2-5.4); White Blood Count 3.94 K/uL (4.8-10.8)
[2019-07-25 07:10] LABS: Estimated Average Glucose 91 mg/dl; Hemoglobin A1C 4.8 % (4.5-5.6)
[2019-07-25 07:13] LABS: Albumin Level 2.6 gm/dl (3.4-5.0); BUN Creatinine Ratio 23.2 (10-20); Calcium 8.2 mg/dl (8.5-10.1); Creatinine Clr Calc Pharmacy 37.4 ml/min; Est GFR (African American) 76.6; Est GFR (Non-African American) 66.1; Potassium 3.2 mmol/L (3.5-5.1)
[2019-07-25 07:18] LABS: Albumin Globulin Ratio 0.9 (0.9-2); Bilirubin,Total 0.5 mg/dl (0.2-1); Total Protein 5.6 gm/dl (6.4-8.2)
[2019-07-25] MEDS: TOPIRAMATE 100 MG TAB PO SCH ×2 (08:49→20:04)
[2019-07-25] MEDS: POTASSIUM CHLORIDE 20 MEQ TABCR PO SCH (08:49)
[2019-07-25] MEDS: HEPARIN SOD 5,000 UNIT/0.5 ML VIAL SC SCH ×2 (08:49→20:03)
[2019-07-25] MEDS: AZITHROMYCIN 250 MG TAB PO SCH (08:49)
[2019-07-25] MEDS: CYANOCOBALAMIN 500 MCG TABLET (VITAMIN B-12) PO SCH (08:50)
[2019-07-25] MEDS: ASPIRIN 81 MG ECTAB PO SCH (08:50)
[2019-07-25] MEDS: METOPROLOL SUCC 50MG EXT REL TAB PO SCH (08:50)
[2019-07-25] MEDS: LISINOPRIL 40 MG TAB PO SCH (08:50)
[2019-07-25] MEDS: OMEGA-3 (PURIFIED FISH OIL) 1 GM CAP PO SCH (08:50)
[2019-07-25] MEDS: MULTIVITAMIN TAB PO SCH (08:50)
[2019-07-25] MEDS: CHOLECALCIFEROL 1,000 UNITS TAB PO SCH (08:51)
--- NOTE | 2019-07-25 10:37 | Hospitalist Progress Note ---
Date of Service July 25, 2019 Assessment & Plan (1) Acute UTI (urinary tract infection): Continue admit to inpatient PCU on telemetry. Vital signs every 4 hours. Continue cefepime that was started in the ER and would cover for Pseudomonas infection that was present in January 2019 inpatient urine. Follow-up urine cultures. Monitor CBC and CMP daily. BNP pending. Monitor closely p.o. intake and IV fluids to prevent volume overload. DVT prophylaxis Lovenox 40 mg subcu daily. Full code (2) Weakness: As above.PT/OT follow up recommendations. Present on Admission?: Yes (3) Acute bronchitis: Continue fluticasone 200 MCG's Vilanterol 25 MCG's/dose inhalation 1 puff daily. Continue ipratropium 20 MCG/albuterol 100 MCG's 1 puff inhalation every 6 hours as needed. Present on Admission?: Yes (4) Weight loss: Appreciate RD nutritional assessment. Present on Admission?: Yes (5) Hemifacial spasm: Patient has a right hemifacial spasm for several years. Patient takes topiramate 200 mg p.o. twice daily daily. Continue this medication. Present on Admission?: Yes (6) Hypertension: Continue home medicine metoprolol succinate 100 mg p.o. daily, lisinopril 40 mg p.o. q. a.m. aspirin 81 mg delayed release Present on Admission?: Yes (7) Hypothyroidism: TSH checked in the ER within normal limits, continue home dose of levothyroxine 88 MCG's p.o. every morning Present on Admission?: Yes (8) COPD (chronic obstructive pulmonary disease): As above-see acute bronchitis. Present on Admission?: Yes (9) CHF (congestive heart failure): BNP normal 1261. Pt is euvolemic now. Plan to switch to pt home dose of Furosemide 40 mg PO. Present on Admission?: Yes Subjective Patient seen and examined at the bedside. Sitting up in the chair. Physical and occupational therapy ongoing. Slowly improving. P.o. intake is slowly improving as well. Patient denies fever, chills, chest pain, shortness of breath, abdominal pain, frequency, urgency. Patient reports no new fall. Afebrile. Review of Systems Review of Systems: All systems reviewed & are unremarkable except as noted in HPI & below Physical Exam Constitutional: WD/WN, vitals as above well developed, + cachectic and + frail appearing Eyes: PERRL, conjunctivae normal, anicteric sclerae ENMT: external ear and nose normal, oropharynx normal Neck: trachea midline, no thyromegaly Respiratory: normal respiratory effort, lungs clear to auscultation Cardiovascular: Heart Sounds: normal S1 and normal S2 Palpation: + palpable S3 Vessels: dorsalis pedis pulses present Extremities: + pedal edema Gastrointestinal (Abdomen): normal bowel sounds, soft, nontender, no hepatosplenomegaly Musculoskeletal: no cyanosis or clubbing, extremities motor strength 5/5 Neurologic: patellar DTR's 2+ bilat, sensation intact Psychiatric: A+Ox3, euthymic affect Lymphatic: no cervical or axillary lymphadenopathy Results & Data Vital Signs (Past 12 Hours) Vital Signs Temp Pulse Resp BP Pulse Ox 07/25/19 08:05 36.6 C 85 18 142/80 H 92 07/25/19 04:10 36.6 C 61 16 132/68 96 07/24/19 23:37 36.6 C 64 18 138/66 95 PG Care Time/CCT Total # of Minutes Spent Total Time Spent with Patient: Total time spent is greater than 50% in coordination of care (as documented) at patient's floor/unit and/or counseling patient:
[2019-07-25] MEDS: CEFEPIME 1,000 MG in SYRINGE 0 ML IV SCH (12:31)
[2019-07-25] MEDS: BUDESONIDE/FORMOTEROL FUMARATE 160/4.5 60 PUFFS/INHALER INH SCH (20:00)
[2019-07-26] MEDS: LEVOTHYROXINE SODIUM 88 MCG TABLET PO SCH (06:04)
[2019-07-26 06:11] LABS: Basophils # (auto) 0.02 K/uL (0-0.2); Basophils % (auto) 0.6 %; Eosinophils # (auto) 0.18 K/uL (0-0.5); Eosinophils % (auto) 5.4 %; Hematocrit (blood only) 30.2 % (37-47); Hemoglobin 10.2 g/dL (12.0-16.0); Lymphocytes # (auto) 0.91 K/uL (1.2-3.4); Lymphocytes % (auto) 27.4 %; Mean Corpuscular Hemoglobin 31.7 pg (25-34); Mean Corpuscular Hgb Conc 33.8 g/dL (32-36); Mean Corpuscular Volume 93.8 fL (80-100); Mean Platelet Volume 8.9 fL (7.4-10.4); Neutrophils # (auto) 1.81 K/uL (1.4-6.5); Neutrophils % (auto) 54.6 %; Platelet Count 171 K/uL (130-400); RDW Coefficient of Variation 13.7 % (11.5-14.5); RDW Standard Deviation 47.4 fL (36.4-46.3); Red Blood Count 3.22 M/uL (4.2-5.4); White Blood Count 3.32 K/uL (4.8-10.8)
[2019-07-26 06:48] LABS: Albumin Level 2.7 gm/dl (3.4-5.0); BUN Creatinine Ratio 17.1 (10-20); Calcium 8.6 mg/dl (8.5-10.1); Est GFR (African American) 82.6; Est GFR (Non-African American) 71.3; Potassium 3.8 mmol/L (3.5-5.1)
[2019-07-26 06:51] LABS: Bilirubin,Total 0.4 mg/dl (0.2-1); Globulin 2.8 gm/dl (2.5-4.0); Total Protein 5.5 gm/dl (6.4-8.2)
[2019-07-26] MEDS: METOPROLOL SUCC 50MG EXT REL TAB PO SCH (08:17)
[2019-07-26] MEDS: CYANOCOBALAMIN 500 MCG TABLET (VITAMIN B-12) PO SCH (08:17)
[2019-07-26] MEDS: TOPIRAMATE 100 MG TAB PO SCH ×2 (08:17→20:14)
[2019-07-26] MEDS: CHOLECALCIFEROL 1,000 UNITS TAB PO SCH (08:17)
[2019-07-26] MEDS: MULTIVITAMIN TAB PO SCH (08:17)
[2019-07-26] MEDS: POTASSIUM CHLORIDE 20 MEQ TABCR PO SCH (08:18)
[2019-07-26] MEDS: AZITHROMYCIN 250 MG TAB PO SCH (08:18)
[2019-07-26] MEDS: ASPIRIN 81 MG ECTAB PO SCH (08:18)
[2019-07-26] MEDS: BUDESONIDE/FORMOTEROL FUMARATE 160/4.5 60 PUFFS/INHALER INH SCH ×2 (08:18→20:14)
[2019-07-26] MEDS: HEPARIN SOD 5,000 UNIT/0.5 ML VIAL SC SCH ×2 (08:18→20:14)
[2019-07-26] MEDS: OMEGA-3 (PURIFIED FISH OIL) 1 GM CAP PO SCH (08:18)
[2019-07-26] MEDS: LISINOPRIL 40 MG TAB PO SCH (08:18)
[2019-07-26] MEDS: FUROSEMIDE 40 MG TAB PO SCH (09:14)
--- NOTE | 2019-07-26 09:26 | Hospitalist Progress Note ---
Date of Service July 26, 2019 Assessment & Plan (1) Acute UTI (urinary tract infection): Continue admit to inpatient PCU on telemetry. Vital signs every 4 hours. Continue cefepime that was started in the ER and would cover for Pseudomonas infection that was present in January 2019 inpatient urine. Follow-up urine cultures. Monitor CBC and CMP daily. BNP pending. Monitor closely p.o. intake and IV fluids to prevent volume overload. DVT prophylaxis Lovenox 40 mg subcu daily. Full code (2) Weakness: As above.PT/OT follow up recommendations. (3) Acute bronchitis: Continue fluticasone 200 MCG's Vilanterol 25 MCG's/dose inhalation 1 puff daily. Continue ipratropium 20 MCG/albuterol 100 MCG's 1 puff inhalation every 6 hours as needed. (4) Weight loss: Appreciate RD nutritional assessment. (5) Hemifacial spasm: Patient has a right hemifacial spasm for several years. Patient takes topiramate 200 mg p.o. twice daily daily. Continue this medication. (6) Hypertension: Continue home medicine metoprolol succinate 100 mg p.o. daily, lisinopril 40 mg p.o. q. a.m. aspirin 81 mg delayed release (7) Hypothyroidism: TSH checked in the ER within normal limits, continue home dose of levothyroxine 88 MCG's p.o. every morning (8) COPD (chronic obstructive pulmonary disease): As above-see acute bronchitis. (9) CHF (congestive heart failure): BNP normal 1261. Pt is euvolemic now. Plan to switch to pt home dose of Furosemide 40 mg PO. Subjective Patient seen and examined at the bedside. Sitting up in the chair. Physical and occupational therapy ongoing. Slowly improving. P.o. intake is slowly improving as well. Patient denies fever, chills, chest pain, shortness of breath, abdominal pain, frequency, urgency. Patient reports no new fall. Afebrile. Review of Systems Review of Systems: All systems reviewed & are unremarkable except as noted in HPI & below Physical Exam Constitutional: WD/WN, vitals as above well developed, + cachectic and + frail appearing Eyes: PERRL, conjunctivae normal, anicteric sclerae ENMT: external ear and nose normal, oropharynx normal Neck: trachea midline, no thyromegaly Respiratory: normal respiratory effort, lungs clear to auscultation Cardiovascular: Heart Sounds: normal S1 and normal S2 Palpation: + palpable S3 Vessels: dorsalis pedis pulses present Extremities: + pedal edema Gastrointestinal (Abdomen): normal bowel sounds, soft, nontender, no hepatosplenomegaly Musculoskeletal: no cyanosis or clubbing, extremities motor strength 5/5 Neurologic: patellar DTR's 2+ bilat, sensation intact Psychiatric: A+Ox3, euthymic affect Lymphatic: no cervical or axillary lymphadenopathy Results & Data Vital Signs (Past 12 Hours) Vital Signs Temp Pulse Pulse Pulse Resp BP Pulse Ox 07/26/19 08:00 36.9 C 67 16 150/76 H 95 07/26/19 03:54 36.4 C L 55 L 16 150/80 H 94 07/26/19 00:00 69 07/25/19 23:44 36.4 C L 73 16 150/86 H 97 PG Care Time/CCT Total # of Minutes Spent Total Time Spent with Patient: Total time spent is greater than 50% in coordination of care (as documented) at patient's floor/unit and/or counseling patient:
[2019-07-26] MEDS: CEFEPIME 1,000 MG in SYRINGE 0 ML IV SCH (12:48)
[2019-07-26] MEDS ORDERED: POTASSIUM CHLORIDE 20 MEQ TABCR PO ONE (13:45)
[2019-07-27] MEDS: LEVOTHYROXINE SODIUM 88 MCG TABLET PO SCH (05:40)
[2019-07-27 06:53] LABS: Basophils # (auto) 0.02 K/uL (0-0.2); Basophils % (auto) 0.6 %; Eosinophils # (auto) 0.19 K/uL (0-0.5); Eosinophils % (auto) 5.4 %; Hematocrit (blood only) 31.4 % (37-47); Hemoglobin 10.6 g/dL (12.0-16.0); Immature Granulocytes # (auto) 0.01 K/uL (0.00-0.02); Immature Granulocytes % (auto) 0.3 %; Lymphocytes # (auto) 0.99 K/uL (1.2-3.4); Lymphocytes % (auto) 28.1 %; Mean Corpuscular Hemoglobin 31.7 pg (25-34); Mean Corpuscular Hgb Conc 33.8 g/dL (32-36); Mean Platelet Volume 9.2 fL (7.4-10.4); Monocytes % (auto) 11.4 %; Neutrophils # (auto) 1.91 K/uL (1.4-6.5); Neutrophils % (auto) 54.2 %; Platelet Count 210 K/uL (130-400); RDW Coefficient of Variation 13.9 % (11.5-14.5); RDW Standard Deviation 47.9 fL (36.4-46.3); Red Blood Count 3.34 M/uL (4.2-5.4); White Blood Count 3.52 K/uL (4.8-10.8)
[2019-07-27 07:31] LABS: Albumin Level 3.1 gm/dl (3.4-5.0); BUN Creatinine Ratio 16.2 (10-20); Bilirubin,Total 0.4 mg/dl (0.2-1); Creatinine Clr Calc Pharmacy 34.8 ml/min; Est GFR (African American) 70.4; Est GFR (Non-African American) 60.8; Globulin 3.2 gm/dl (2.5-4.0); Potassium 3.8 mmol/L (3.5-5.1); Total Protein 6.3 gm/dl (6.4-8.2)
[2019-07-27] MEDS: CHOLECALCIFEROL 1,000 UNITS TAB PO SCH (08:03)
[2019-07-27] MEDS: TOPIRAMATE 100 MG TAB PO SCH ×2 (08:03→20:11)
[2019-07-27] MEDS: POTASSIUM CHLORIDE 20 MEQ TABCR PO SCH (08:03)
[2019-07-27] MEDS: METOPROLOL SUCC 50MG EXT REL TAB PO SCH (08:03)
[2019-07-27] MEDS: OMEGA-3 (PURIFIED FISH OIL) 1 GM CAP PO SCH (08:03)
[2019-07-27] MEDS: CYANOCOBALAMIN 500 MCG TABLET (VITAMIN B-12) PO SCH (08:03)
[2019-07-27] MEDS: MULTIVITAMIN TAB PO SCH (08:03)
[2019-07-27] MEDS: LISINOPRIL 40 MG TAB PO SCH (08:03)
[2019-07-27] MEDS: ASPIRIN 81 MG ECTAB PO SCH (08:04)
[2019-07-27] MEDS: HEPARIN SOD 5,000 UNIT/0.5 ML VIAL SC SCH ×2 (08:04→20:11)
[2019-07-27] MEDS: BUDESONIDE/FORMOTEROL FUMARATE 160/4.5 60 PUFFS/INHALER INH SCH ×2 (08:04→20:11)
[2019-07-27] MEDS: FUROSEMIDE 40 MG TAB PO SCH (08:04)
--- NOTE | 2019-07-27 09:58 | Hospitalist Progress Note ---
Date of Service July 27, 2019 Assessment & Plan (1) Acute UTI (urinary tract infection): Continue admit to inpatient PCU on telemetry. Vital signs every 4 hours. Continue cefepime that was started in the ER and would cover for Pseudomonas infection that was present in January 2019 inpatient urine. Follow-up urine cultures. Monitor CBC and CMP daily. BNP pending. Monitor closely p.o. intake and IV fluids to prevent volume overload. DVT prophylaxis Lovenox 40 mg subcu daily. Disposition home most likely with home health and caregiver. Full code (2) Weakness: As above.PT/OT follow up recommendations. (3) Acute bronchitis: Continue fluticasone 200 MCG's Vilanterol 25 MCG's/dose inhalation 1 puff daily. Continue ipratropium 20 MCG/albuterol 100 MCG's 1 puff inhalation every 6 hours as needed. (4) Weight loss: Appreciate RD nutritional assessment. (5) Hemifacial spasm: Patient has a right hemifacial spasm for several years. Patient takes topiramate 200 mg p.o. twice daily daily. Continue this medication. (6) Hypertension: Continue home medicine metoprolol succinate 100 mg p.o. daily, lisinopril 40 mg p.o. q. a.m. aspirin 81 mg delayed release (7) Hypothyroidism: TSH checked in the ER within normal limits, continue home dose of levothyroxine 88 MCG's p.o. every morning (8) COPD (chronic obstructive pulmonary disease): As above-see acute bronchitis. (9) CHF (congestive heart failure): BNP normal 1261. Pt is euvolemic now. Plan to switch to pt home dose of Furosemide 40 mg PO. Subjective Patient seen and examined at the bedside. Sitting up in the chair. Physical and occupational therapy ongoing. P.o. intake is slowly improving as well. Patient denies fever, chills, chest pain, shortness of breath, abdominal pain, frequency, urgency. Patient reports no new fall. Afebrile. Review of Systems Review of Systems: All systems reviewed & are unremarkable except as noted in HPI & below Physical Exam Constitutional: WD/WN, vitals as above well developed, + cachectic and + frail appearing Eyes: PERRL, conjunctivae normal, anicteric sclerae ENMT: external ear and nose normal, oropharynx normal Neck: trachea midline, no thyromegaly Respiratory: normal respiratory effort, lungs clear to auscultation Cardiovascular: Heart Sounds: normal S1 and normal S2 Palpation: + palpable S3 Vessels: dorsalis pedis pulses present Extremities: + pedal edema Gastrointestinal (Abdomen): normal bowel sounds, soft, nontender, no hepatosplenomegaly Musculoskeletal: no cyanosis or clubbing, extremities motor strength 5/5 Neurologic: patellar DTR's 2+ bilat, sensation intact Psychiatric: A+Ox3, euthymic affect Lymphatic: no cervical or axillary lymphadenopathy Results & Data Vital Signs (Past 12 Hours) Vital Signs Temp Pulse Resp BP Pulse Ox 07/27/19 07:59 36.8 C 65 16 151/80 H 93 07/27/19 03:30 36.3 C L 92 H 16 134/71 96 07/27/19 00:00 36.4 C L 62 18 146/85 H 97 PG Care Time/CCT Total # of Minutes Spent Total Time Spent with Patient: Total time spent is greater than 50% in coordination of care (as documented) at patient's floor/unit and/or counseling patient:
[2019-07-27] MEDS: CEFEPIME 1,000 MG in SYRINGE 0 ML IV SCH (12:28)
[2019-07-28] MEDS: LEVOTHYROXINE SODIUM 88 MCG TABLET PO SCH (05:48)
[2019-07-28 05:52] LABS: Basophils # (auto) 0.02 K/uL (0-0.2); Basophils % (auto) 0.5 %; Eosinophils # (auto) 0.14 K/uL (0-0.5); Eosinophils % (auto) 3.8 %; Hematocrit (blood only) 30.7 % (37-47); Hemoglobin 10.5 g/dL (12.0-16.0); Immature Granulocytes # (auto) 0.03 K/uL (0.00-0.02); Immature Granulocytes % (auto) 0.8 %; Lymphocytes # (auto) 0.91 K/uL (1.2-3.4); Lymphocytes % (auto) 24.4 %; Mean Corpuscular Hemoglobin 31.9 pg (25-34); Mean Corpuscular Hgb Conc 34.2 g/dL (32-36); Mean Corpuscular Volume 93.3 fL (80-100); Mean Platelet Volume 8.8 fL (7.4-10.4); Monocytes % (auto) 13.4 %; Neutrophils # (auto) 2.13 K/uL (1.4-6.5); Neutrophils % (auto) 57.1 %; Platelet Count 211 K/uL (130-400); RDW Standard Deviation 47.7 fL (36.4-46.3); Red Blood Count 3.29 M/uL (4.2-5.4); White Blood Count 3.73 K/uL (4.8-10.8)
[2019-07-28 06:22] LABS: Albumin Level 2.9 gm/dl (3.4-5.0); BUN Creatinine Ratio 22.1 (10-20); Calcium 9.2 mg/dl (8.5-10.1); Creatinine Clr Calc Pharmacy 36.9 ml/min; Est GFR (African American) 75.5; Est GFR (Non-African American) 65.2; Potassium 3.3 mmol/L (3.5-5.1)
[2019-07-28 06:25] LABS: Albumin Globulin Ratio 0.9 (0.9-2); Bilirubin,Total 0.3 mg/dl (0.2-1); Globulin 3.3 gm/dl (2.5-4.0); Total Protein 6.2 gm/dl (6.4-8.2)
[2019-07-28] MEDS: MULTIVITAMIN TAB PO SCH (08:31)
[2019-07-28] MEDS: CHOLECALCIFEROL 1,000 UNITS TAB PO SCH (08:31)
[2019-07-28] MEDS: METOPROLOL SUCC 50MG EXT REL TAB PO SCH (08:31)
[2019-07-28] MEDS: TOPIRAMATE 100 MG TAB PO SCH (08:32)
[2019-07-28] MEDS: POTASSIUM CHLORIDE 20 MEQ TABCR PO SCH (08:32)
[2019-07-28] MEDS: OMEGA-3 (PURIFIED FISH OIL) 1 GM CAP PO SCH (08:32)
[2019-07-28] MEDS: BUDESONIDE/FORMOTEROL FUMARATE 160/4.5 60 PUFFS/INHALER INH SCH (08:32)
[2019-07-28] MEDS: ASPIRIN 81 MG ECTAB PO SCH (08:32)
[2019-07-28] MEDS: FUROSEMIDE 40 MG TAB PO SCH (08:32)
[2019-07-28] MEDS: LISINOPRIL 40 MG TAB PO SCH (08:33)
[2019-07-28] MEDS: HEPARIN SOD 5,000 UNIT/0.5 ML VIAL SC SCH (08:33)
[2019-07-28] MEDS: CYANOCOBALAMIN 500 MCG TABLET (VITAMIN B-12) PO SCH (08:33)
--- NOTE | 2019-07-28 11:20 | Hospitalist Progress Note ---
Date of Service July 28, 2019 Assessment & Plan (1) Acute UTI (urinary tract infection): Patient would need to continue 5 more days of cefdinir p.o. 300 mg p.o. twice daily for 5 more days. Disposition home with home health. Patient reports feeling great and wants to be discharged home. Disposition home most likely with home health and caregiver. Full code (2) Weakness: Home health with physical and occupational therapy. (3) Acute bronchitis: Continue fluticasone 200 MCG's Vilanterol 25 MCG's/dose inhalation 1 puff daily. Continue ipratropium 20 MCG/albuterol 100 MCG's 1 puff inhalation every 6 hours as needed. (4) Weight loss: Appreciate RD nutritional assessment. (5) Hemifacial spasm: Patient has a right hemifacial spasm for several years. Patient takes topiramate 200 mg p.o. twice daily daily. Continue this medication. (6) Hypertension: Continue home medicine metoprolol succinate 100 mg p.o. daily, lisinopril 40 mg p.o. q. a.m. aspirin 81 mg delayed release (7) Hypothyroidism: TSH checked in the ER within normal limits, continue home dose of levothyroxine 88 MCG's p.o. every morning (8) COPD (chronic obstructive pulmonary disease): As above-see acute bronchitis. (9) CHF (congestive heart failure): BNP normal 1261. Pt is euvolemic now. Plan to switch to pt home dose of Furosemide 40 mg PO. Subjective Patient seen and examined at the bedside. Patient is sitting up in the chair and using walker to get around. Physical and Occupational Therapy and SNF was declined by patient insurance. We decided to send patient home with home health. Patient and her daughter are agreeable with it. Patient will have physical and occupational therapy at home. Patient says she feels great and she is ready to be discharged home. Patient is afebrile. Patient denies fever, chills, chest pain, shortness of breath, abdominal pain, frequency, urgency. P.o. intake is great. Patient is at her baseline. Review of Systems Review of Systems: All systems reviewed & are unremarkable except as noted in HPI & below Physical Exam Constitutional: WD/WN, vitals as above well developed, + cachectic and + frail appearing Eyes: PERRL, conjunctivae normal, anicteric sclerae ENMT: external ear and nose normal, oropharynx normal Neck: trachea midline, no thyromegaly Respiratory: normal respiratory effort, lungs clear to auscultation Cardiovascular: Heart Sounds: normal S1 and normal S2 Palpation: + palpable S3 Vessels: dorsalis pedis pulses present Extremities: + pedal edema Gastrointestinal (Abdomen): normal bowel sounds, soft, nontender, no hepatosplenomegaly Musculoskeletal: no cyanosis or clubbing, extremities motor strength 5/5 Neurologic: patellar DTR's 2+ bilat, sensation intact Psychiatric: A+Ox3, euthymic affect Lymphatic: no cervical or axillary lymphadenopathy Results & Data Vital Signs (Past 12 Hours) Vital Signs Temp Pulse Resp BP Pulse Ox 07/28/19 10:35 36.3 C L 75 18 134/76 98 07/28/19 07:27 36.3 C L 58 L 18 136/76 98 07/28/19 04:38 36.3 C L 56 L 20 146/74 H 94 07/27/19 23:53 36.3 C L 61 16 129/66 94 PG Care Time/CCT Total # of Minutes Spent Total Time Spent with Patient: Total time spent is greater than 50% in coordination of care (as documented) at patient's floor/unit and/or counseling patient:
--- NOTE | 2019-07-28 11:43 | Discharge Summary ---
Date of Service July 28, 2019 Admission HPI Per Admitting Provider Patient is a 83 years old female with past medical history of hypertension, congestive heart failure, hypothyroidism, COPD, hemifacial spasm, osteoporosis, who was brought by her daughter to the emergency room with a complaint that patient fell 4 times in the past few days. Daughter reports that she was sleeping when this occurred and she did not notice her mother falling but mother reported that to her in the morning. Patient said that her legs were not listening to her and this was related purely to mechanical fall. Patient reports no hypotension or blacking out or any episode of syncope. Patient said she feels otherwise in good health. Patient appetite is okay but she appears very cachectic. Patient has hemifacial spasm for couple of years and she takes topiramate for it. Patient denies fever, chills, chest pain, shortness of breath, abdominal pain, frequency, urgency, hematemesis hematuria or dysuria. Labs are reviewed: Which shows WBCs 4.72, hemoglobin 11.2, hematocrit 33.6, platelets 194, PT 10.9, PTT 25.1, sodium 141, potassium 3.8, chloride 109, BUN 22, GFR 57.6, magnesium 2.1, AST 66, ALT 33 troponin 0 0.015, TSH 1.26. Urine is turbid, with negative nitrates +3+ positive leukocyte esterase white blood cell over 30,WBCs of 14.89, and over 30 epithelial cells 2+ bacteria which appears to be not a clean-catch urine. Influenza A and B both negative. Decision was made to admit patient for urinary tract infection probably Pseudomonas(which was positive in the January 2019 and pansensitive), physical and occupational therapy and possible placement to alf facility for a dditional physical and Occupational Therapy. Principal Diagnosis none Discharge Exam Constitutional WD/WN, vitals as above well developed, + cachectic and + frail appearing Eyes PERRL, conjunctivae normal, anicteric sclerae ENMT external ear and nose normal, oropharynx normal Neck trachea midline, no thyromegaly Respiratory normal respiratory effort, lungs clear to auscultation Cardiovascular Heart Sounds: normal S1 and normal S2 Palpation: + palpable S3 Vessels: dorsalis pedis pulses present Extremities: + pedal edema Gastrointestinal (Abdomen) normal bowel sounds, soft, nontender, no hepatosplenomegaly Musculoskeletal no cyanosis or clubbing, extremities motor strength 5/5 Neurologic patellar DTR's 2+ bilat, sensation intact Psychiatric A+Ox3, euthymic affect Lymphatic no cervical or axillary lymphadenopathy Discharge Data Allergies Allergy/AdvReac Type Severity Reaction Status Date / Time baclofen Allergy Unknown Tremor Verified 07/24/19 10:27 levetiracetam AdvReac Intermediate MADE FEEL Verified 07/24/19 10:27 FUNNY Consultations 07/24/19 11:42 ED Decision to Admit Stat Ordered Studies 07/24/19 10:13 CT head/brain wo con Stat Hospital Course (1) Acute UTI (urinary tract infection): Pt reports feeling better. Patient would need to continue 5 more days of cefdinir p.o. 300 mg p.o. twice daily for 5 more days. Disposition home with home health. Patient reports feeling great and wants to be discharged home. Full code (2) Weakness: Home health with physical and occupational therapy. (3) Acute bronchitis: Continue fluticasone 200 MCG's Vilanterol 25 MCG's/dose inhalation 1 puff daily. Continue ipratropium 20 MCG/albuterol 100 MCG's 1 puff inhalation every 6 hours as needed. (4) Weight loss: Appreciate RD nutritional assessment. (5) Hemifacial spasm: Patient has a right hemifacial spasm for several years. Patient takes topiramate 200 mg p.o. twice daily daily. Continue this medication. (6) Hypertension: Continue home medicine metoprolol succinate 100 mg p.o. daily, lisinopril 40 mg p.o. q. a.m. aspirin 81 mg delayed release (7) Hypothyroidism: TSH checked in the ER within normal limits, continue home dose of levothyroxine 88 MCG's p.o. every morning (8) COPD (chronic obstructive pulmonary disease): As above-see acute bronchitis. (9) CHF (congestive heart failure): BNP normal 1261. Pt is euvolemic now. Plan to switch to pt home dose of Furosemide 40 mg PO. Total Time Total Time Spent Total Time Spent (In Minutes): over 30 min Discharge Plan Discharge Items Patient Disposition: Home - Home Health Services Reason For Visit: UTI Discharge Diagnosis: UTI, frequent falls Condition on Discharge: Good Activity: As commented below Lifting: Gradually increase as tolerated Non-emergency contact: Primary Care Provider Call non-emergency contact if: you have any medication questions, your symptoms worsen, your pain is not controlled, your pain is worsening, your pain is unusual for you, your pain is concerning for you, you have a fever, your temperature is above 101 and your temperature is above 101.5 Follow-up/Referrals: Kimberly Michele MD [Primary Care Provider] - 08/01/19 12:30 pm (follow up appointment with your primary care physician) Diet: Heart Healthy and Low Sodium (2gm) Addtl Attending Provider Instructions: You were treated for urinary tract infections and frequent falls. Please follow-up with your primary care physicians within a 7 days. At that point check CBC and CMP. Please continue antibiotics cefdinir 300 mg p.o. twice daily for 5 additional days. Home health is going to assist to with physical and occupational therapy. Pending Studies at Discharge: No Stand-Alone Forms: My [facility] [employer], Smoking Cessation Medications and DC Order Prescriptions: New cefdinir 300 mg capsule 300 mg PO BID 5 Days Qty: 10 RF: 0 Continued aspirin 81 mg tablet,delayed release (DR/EC) 81 mg PO DAILY Qty: 30 RF: 2 omega-3 fatty acids [Fish Oil Concentrate] 1,000 mg capsule 1,000 mg PO DAILY Qty: 30 RF: 0 multivitamin tablet 1 tab PO DAILY Qty: 30 RF: 0 cholecalciferol (vitamin D3) 5,000 unit capsule 5,000 units PO DAILY Qty: 30 RF: 0 Breo Ellipta 200-25 mcg/dose blister with device 1 puffs INH DAILY Qty: 60 RF: 5 Combivent Respimat 20-100 mcg/actuation mist 1 puffs INH Q6H PRN (Reason: shortness of breath or wheezing) Qty: 4 RF: 2 topiramate 200 mg tablet 200 mg PO BID 30 Days Qty: 60 RF: 5 furosemide 40 mg tablet 40 mg PO QAM Qty: 30 RF: 2 cyanocobalamin (vitamin B-12) [Vitamin B-12] 1,000 mcg tablet 1,000 mcg PO DAILY Qty: 30 RF: 0 azithromycin 250 mg tablet 250 mg PO UD RF: 0 metoprolol succinate 100 mg tablet extended release 24 hr 100 mg PO DAILY RF: 0 levothyroxine 88 mcg tablet 88 mcg PO QAM RF: 0 potassium chloride 20 mEq tablet,ER particles/crystals 20 meq PO DAILY RF: 0 lisinopril 40 mg tablet 40 mg PO QAM RF: 0 Discharge Orders: Discharge Order (Routine); Ordered 07/28/19 Ordered By: Berhane Hanson Admission Data Admit Date/Time: 07/24/19 12:30 Attending Provider: Berhane Hanson Admit Provider: Berhane Hanson Primary Care Provider: Kimberly Michele Other Providers: Berhane Hanson ; [facility]
== END 2019-07-28 14:33 | disposition home health service (06) | DRG 690 ==
LOC: ED 09:55 → 2E 12:30

== ENCOUNTER 2021-01-07 09:01 | Inpatient (IN) ==
[2021-01-07] MEDS ORDERED: SODIUM CHLORIDE 0.9% 1000ML 1,000 ML IV STA (09:21)
--- NOTE | 2021-01-07 09:52 | CT Scan Report ---
CT OF THE HEAD WITHOUT CONTRAST CLINICAL HISTORY: Altered mental status. COMPARISON STUDY: Head CT July 24, 2019. MRI of the brain September 13, 2020. TECHNIQUE: Helical axial images of the head were obtained without IV contrast. Automated exposure con trol was utilized for the study. A dose lowering technique was utilized adhering to the principles o f ALARA. FINDINGS: This exam is mildly compromised by motion artifact. No acute intracranial hemorrhage, midli ne shift or mass effect is present. Mild ventricular dilatation is likely due to atrophy. 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 White matter hypodensity suggests small vessel disease. There are no findings to suggest acute dural sinus thrombosis or acute territorial infarct. Visualized por tions of the sinuses and mastoid air cells are clear. There are no significant calvarial abnormalitie s. IMPRESSION: No acute intracranial findings. ACT 112: Negative or not required by law. Electronically signed by: Jacob Pickering M.D. 01/07/2021 9:50 AM
--- NOTE | 2021-01-07 09:56 | Emergency Department Note ---
Impression & Plan Weakness, Acute dehydration, Decubitus ulcer of sacral area ED Provider Note NAME: CIARA OLIVER AGE: 85 SEX: F : 1935 ARRIVES VIA: Ambulance INFORMANT: Patient, the patient's daughter ED PROVIDER(S): Deejay Hassan DO CHIEF COMPLAINT: Altered mental status HPI: The patient is an 85-year-old female who presented to the emergency department by ambulance for an altered mental status. The patient was with a different family member than the one that presented to the emergency department. Apparently she had an episode where she became unresponsive. She is normally able to talk and converse but had an episode where she was unable to follow commands. She appeared to not be awake. There was no definite seizure activi ty. The patient is currently being treated with a quinolone for a decubitus ulcer. There is been no reported fever. There is been no reported falls. The patient herself does not offer any complaints. The patient has not been seen by the primary care physician. The patient does have a POLST form. She has a history of end-stage Parkinson's disease. She also has a history of CHF. ROS: See above HPI for pertinent positives & negatives. A total of 10 systems reviewed and were otherwise negative. PAST MEDICAL HISTORY: See Below PAST SURGICAL HISTORY: See Below FAMILY HISTORY: See Below SOCIAL HISTORY: See Below HOME MEDICATIONS: See Below ALLERGIES: See Below VITALS: See Below PHYSICAL EXAMINATION: GENERAL: The patient is listless and slow to respond to questioning. EYES: The conjunctivae are clear. The pupils are round and reactive. EARS, NOSE, MOUTH AND THROAT: The nose is without any evidence of any deformity. NECK: The neck is nontender and supple. RESPIRATORY: Shallow respirations were noted. Rales were noted throughout. CARDIOVASCULAR: Regular rate and rhythm noted there no murmurs rubs or gallops normal S1 normal S2. GASTROINTESTINAL: The abdomen is soft. Abdomen is nontender. MUSCULOSKELETAL/EXTREMITIES: There is no evidence of gross deformity full range of motion is noted in the hips and shoulders. SKIN: Skin is warm and dry. There is a large sacral decubitus noted. NEUROLOGIC: Patient slow to respond to questions but does acknowledge her name. Strength is symmetric but diminished bilaterally. MEDICAL DECISION MAKING: The patient is an 85-year-old female who presented to the emergency department by ambulance for an evaluation of altered mental status. The patient had an episode of altered mental status at home. She has been dealing with a decubitus ulcer in her sacral region. The patient was treated with IV fluids and IV antibiotics in the emergency department. She was reevaluated multiple times. I discussed her findings with her daughter at length. Given the patient's age and comorbidities I am unsure how well she will do with this infection. Ultimately I did discuss her case with the on-call [facility]. They have agreed to evaluate the patient in the emergency department for further management and disposition. The patient herself did improve somewhat while she was in the emergency department. Triage Nursing notes reviewed. Prior medical records reviewed Vital Signs: reviewed and remarkable for bradycardia. Differential diagnosis: Infection, hypoglycemia, electrolyte abnormalities, overdose, toxicologic, cardiac sources, intracerebral event, neurologic, trauma, as well as other pathologies. ER treatment provided: See below Diagnostics interpreted by me: ECG: EKG was obtained in the emergency department. My interpretation is sinus rhythm at 62 bpm. Ectopic atrial beats were noted. This was compared to a tracing from November 112020. No significant changes were noted. Cardiac Monitoring: An order was placed for continuous cardiac monitoring. The monitor shows a rate of 65 bpm with sinus rhythm. Laboratory studies: As stated above and show below. Imaging studies: See below Consultation(s): I discussed this case with who is on-call for the [facility] hospitalist group. She will evaluate the patient in the emergency department. Past Med/Surg History Medical History Acute UTI Blood in stool COPD (chronic obstructive pulmonary disease) Facial nerve disorder Hemifacial spasm Lower leg edema Osteoporosis Tremor Surgical History H/O breast biopsy Family History Denies family history of Ovarian cancer Prostate cancer Myocardial infarction Breast cancer Colorectal cancer Social History Smoking Status: Former smoker Tobacco Type: Cigarettes Second Hand Exposure: No; Hx Alcohol Use: No (Unknown) Hx Substance Use: No (Unknown) Preferred Language: Greek Communication Ability: Effective Visual Impairment: No Limitations Hearing Ability: Normal Tea Bag Packer Required: No Beliefs That Will Affect Care: None marital status: Current Living Situation: Rehab Current Living Situation Comment: lives with daughter Loren current occupational status: retired Feels Safe at Home: Yes Dental Care, Regularly: No Physical Activity Frequency: Does not Exercise Seatbelt Use: always Assistive Devices: Walker Allergies Allergies Allergy/AdvReac Type Severity Reaction Status Date / Time baclofen Allergy Intermediate Tremor Verified 01/07/21 10:16 levetiracetam AdvReac Intermediate MADE FEEL Verified 01/07/21 10:16 FUNNY Home Meds Home Medications Medication Instructions Recorded Confirmed Combivent Respimat 1 puff INHALATION QID PRN 10/28/20 01/07/21 cholecalciferol (vitamin D3) 50 mcg PO DAILY 10/28/20 01/07/21 [Vitamin D3] acetaminophen 325 mg tablet 325 mg PO Q4H PRN tab 12/14/20 01/07/21 amino acids-protein hydrolys 1 ea PO QAM 01/07/21 01/07/21 [LiquaCel 100] aspirin 81 mg PO DAILY 01/07/21 01/07/21 fluticasone furoate-vilanterol 1 inh INHALATION DAILY 01/07/21 01/07/21 [Breo Ellipta] Previous Rx's Medication Instructions Recorded multivitamin 1 tab PO DAILY #30 tab 02/07/19 omega-3 fatty acids 1,000 mg 1,000 mg PO DAILY #30 cap 02/07/19 capsule topiramate 50 mg tablet 150 mg PO BID 30 Days #180 tab 04/23/20 citalopram 20 mg tablet 20 mg PO DAILY #30 tab 05/21/20 metoprolol succinate 100 mg 100 mg PO DAILY #30 tab 07/18/20 tablet,extended release 24 hr potassium chloride 20 mEq 20 meq PO DAILY #30 tab 07/18/20 tablet,extended release(part/cryst) memantine 5 mg tablet 5 mg PO BID #60 tab 07/24/20 lisinopril 40 mg tablet 40 mg PO QAM #30 tab 09/04/20 diaper,brief,adult,disposable #84 ea 10/22/20 food supplemt, lactose-reduced 1 ea PO DAILY #30 btl 10/22/20 levothyroxine 88 mcg tablet 88 mcg PO QAM #90 tab 10/23/20 miscellaneous medical supply See Rx Instructions .ROUTE 12/24/20 .COMPLEX #1 ea fluconazole 200 mg tablet 200 mg PO QAM 180 Days #180 tab 12/27/20 furosemide 20 mg tablet 20 mg PO DAILY #30 tab 12/27/20 Results & Data (ED) Vital Signs Vital Signs - 24 hr 01/07/21 09:00 01/07/21 09:03 01/07/21 10:17 Temperature 37.6 C H Temperature Source Oral Pulse Rate 66 57 L Pulse Rate from SpO2 Sensor 57 L Pulse Rhythm Regular Pulse Strength Normal Respiratory Rate 20 14 Respiratory Effort / Characteristics Non-Labored Spontaneous Respiratory Depth Normal Respiratory Pattern Regular Blood Pressure 129/74 129/74 127/60 Blood Pressure Mean 92 92 82 Blood Pressure Position Lying Pulse Oximetry 97 97 Oxygen Delivery Method Room Air Sepsis Recent Fever Within 48 Hours No Sepsis New/Unexplained Change in Mental Status N/A Sepsis Action Taken by Nursing No Action Required 01/07/21 10:30 01/07/21 11:30 01/07/21 12:00 Temperature Temperature Source Pulse Rate 55 L 53 L 53 L Pulse Rate from SpO2 Sensor 55 L 53 L 51 L Pulse Rhythm Pulse Strength Respiratory Rate 14 21 13 Respiratory Effort / Characteristics Respiratory Depth Respiratory Pattern Blood Pressure 126/69 102/54 L Blood Pressure Mean 88 70 Blood Pressure Position Pulse Oximetry 98 97 99 Oxygen Delivery Method Sepsis Recent Fever Within 48 Hours Sepsis New/Unexplained Change in Mental Status Sepsis Action Taken by Nursing 01/07/21 12:30 01/07/21 13:02 01/07/21 13:37 Temperature Temperature Source Pulse Rate 54 L 56 L 56 L Pulse Rate from SpO2 Sensor 54 L 56 L 56 L Pulse Rhythm Pulse Strength Respiratory Rate 17 17 13 Respiratory Effort / Characteristics Respiratory Depth Respiratory Pattern Blood Pressure 129/63 135/66 130/80 Blood Pressure Mean 85 89 96 Blood Pressure Position Pulse Oximetry 98 99 97 Oxygen Delivery Method Sepsis Recent Fever Within 48 Hours Sepsis New/Unexplained Change in Mental Status Sepsis Action Taken by [facility] Medications Current Medication List: was personally reviewed by me Laboratory Data Attestation: I reviewed the patient's lab results. Result diagrams: 01/07/21 10:11 01/07/21 10:11 Lab Results 01/07/21 01/07/21 01/07/21 Range/Units 10:11 10:11 10:11 WBC 6.19 (4.8-10.8) K/uL RBC 3.43 L (4.2-5.4) M/uL Hgb 10.3 L (12.0-16.0) g/dL Hct 32.4 L (37-47) % MCV 94.5 (80-100) fL MCH 30.0 (25-34) pg MCHC 31.8 L (32-36) g/dL RDW Std Deviation 62.3 H (36.4-46.3) fL RDW Coeff of Phan 18.3 H (11.5-14.5) % Plt Count 293 (130-400) K/uL MPV 9.2 (7.4-10.4) fL Immature Gran % (Auto) 0.6 % Neut % (Auto) 73.8 % Lymph % (Auto) 11.8 % [place] % (Auto) 5.7 % Eos % (Auto) 6.8 % Baso % (Auto) 1.3 % Neut # (Auto) 4.57 (1.4-6.5) K/uL Lymph # (Auto) 0.73 L (1.2-3.4) K/uL [place] # (Auto) 0.35 (0.11-0.59) K/uL Eos # (Auto) 0.42 (0-0.5) K/uL Baso # (Auto) 0.08 (0-0.2) K/uL Immature Gran # (Auto) 0.04 H (0.00-0.02) K/uL ESR 17 (0-30) mm/hr PT 10.6 (9.0-12.0) Seconds INR 1.0 (0.9-1.1) APTT 22.2 (21.0-31.0) Seconds PTT Ratio 0.8 Sodium (136-145) mmol/L Potassium (3.5-5.1) mmol/L Chloride (98-107) mmol/L Carbon Dioxide (21-32) mmol/L Anion Gap (3-11) BUN (7-18) mg/dl Creatinine (0.6-1.2) mg/dl Est Cr Clr Drug Dosing Est GFR ( Amer) Est GFR (Non-Af Amer) BUN/Creatinine Ratio (10-20) Glucose (70-99) mg/dl Calcium (8.5-10.1) mg/dl Magnesium (1.8-2.4) mg/dl Total Bilirubin (0.2-1) mg/dl AST (15-37) U/L ALT (12-78) U/L Alkaline Phosphatase (45-117) U/L Troponin I (0-0.045) ng/ml NT-Pro-B Natriuret Pep (0-1800) pg/ml Total Protein (6.4-8.2) gm/dl Albumin (3.4-5.0) gm/dl Globulin (2.5-4.0) gm/dl Albumin/Globulin Ratio (0.9-2) Lipase (73-393) U/L Procalcitonin (0-0.5) ng/ml TSH (0.300-4.500) uIu/ml Free T4 (0.8-1.6) ng/dl Urine Color Urine Appearance (Clear) Urine pH (4.5-7.5) Ur Specific [place] (1.000-1.030) Urine Protein (Negative) Urine Glucose (UA) (Negative) Urine Ketones (Negative) Urine Blood (Negative) Urine Nitrite (Negative) Urine Bilirubin (Negative) Urine Urobilinogen (Negative) Ur Leukocyte Esterase (Negative) COVID-19 Eval Order SARS-CoV-2 (PCR) (Negative) Influenza Type A (PCR) (Neg) Influenza Type B (PCR) (Neg) RSV (RT-PCR) (Neg) 01/07/21 01/07/21 01/07/21 Range/Units 10:11 10:11 12:19 WBC (4.8-10.8) K/uL RBC (4.2-5.4) M/uL Hgb (12.0-16.0) g/dL Hct (37-47) % MCV (80-100) fL MCH (25-34) pg MCHC (32-36) g/dL RDW Std Deviation (36.4-46.3) fL RDW Coeff of Phan (11.5-14.5) % Plt Count (130-400) K/uL MPV (7.4-10.4) fL Immature Gran % (Auto) % Neut % (Auto) % Lymph % (Auto) % [place] % (Auto) % Eos % (Auto) % Baso % (Auto) % Neut # (Auto) (1.4-6.5) K/uL Lymph # (Auto) (1.2-3.4) K/uL [place] # (Auto) (0.11-0.59) K/uL Eos # (Auto) (0-0.5) K/uL Baso # (Auto) (0-0.2) K/uL Immature Gran # (Auto) (0.00-0.02) K/uL ESR (0-30) mm/hr PT (9.0-12.0) Seconds INR (0.9-1.1) APTT (21.0-31.0) Seconds PTT Ratio Sodium 146 H (136-145) mmol/L Potassium 4.1 (3.5-5.1) mmol/L Chloride 116 H (98-107) mmol/L Carbon Dioxide 23 (21-32) mmol/L Anion Gap 8.0 (3-11) BUN 40 H (7-18) mg/dl Creatinine 1.07 (0.6-1.2) mg/dl Est Cr Clr Drug Dosing Not Reportable Est GFR ( Amer) 55.6 Est GFR (Non-Af Amer) 48.0 BUN/Creatinine Ratio 37.6 H (10-20) Glucose 128 H (70-99) mg/dl Calcium 9.4 (8.5-10.1) mg/dl Magnesium 2.4 (1.8-2.4) mg/dl Total Bilirubin 0.2 (0.2-1) mg/dl AST 25 (15-37) U/L ALT 20 (12-78) U/L Alkaline Phosphatase 96 (45-117) U/L Troponin I < 0.015 (0-0.045) ng/ml NT-Pro-B Natriuret Pep 1682 (0-1800) pg/ml Total Protein 6.7 (6.4-8.2) gm/dl Albumin 2.5 L (3.4-5.0) gm/dl Globulin 4.2 H (2.5-4.0) gm/dl Albumin/Globulin Ratio 0.6 L (0.9-2) Lipase 184 (73-393) U/L Procalcitonin < 0.05 (0-0.5) ng/ml TSH 21.000 H (0.300-4.500) uIu/ml Free T4 0.74 L (0.8-1.6) ng/dl Urine Color Yellow Urine Appearance Clear (Clear) Urine pH 7.0 (4.5-7.5) Ur Specific [place] 1.013 (1.000-1.030) Urine Protein Negative (Negative) Urine Glucose (UA) Negative (Negative) Urine Ketones Negative (Negative) Urine Blood Negative (Negative) Urine Nitrite Negative (Negative) Urine Bilirubin Negative (Negative) Urine Urobilinogen Negative (Negative) Ur Leukocyte Esterase Negative (Negative) COVID-19 Eval Order SARS-CoV-2 (PCR) (Negative) Influenza Type A (PCR) (Neg) Influenza Type B (PCR) (Neg) RSV (RT-PCR) (Neg) 01/07/21 01/07/21 Range/Units 12:55 12:55 WBC (4.8-10.8) K/uL RBC (4.2-5.4) M/uL Hgb (12.0-16.0) g/dL Hct (37-47) % MCV (80-100) fL MCH (25-34) pg MCHC (32-36) g/dL RDW Std Deviation (36.4-46.3) fL RDW Coeff of Phan (11.5-14.5) % Plt Count (130-400) K/uL MPV (7.4-10.4) fL Immature Gran % (Auto) % Neut % (Auto) % Lymph % (Auto) % [place] % (Auto) % Eos % (Auto) % Baso % (Auto) % Neut # (Auto) (1.4-6.5) K/uL Lymph # (Auto) (1.2-3.4) K/uL [place] # (Auto) (0.11-0.59) K/uL Eos # (Auto) (0-0.5) K/uL Baso # (Auto) (0-0.2) K/uL Immature Gran # (Auto) (0.00-0.02) K/uL ESR (0-30) mm/hr PT (9.0-12.0) Seconds INR (0.9-1.1) APTT (21.0-31.0) Seconds PTT Ratio Sodium (136-145) mmol/L Potassium (3.5-5.1) mmol/L Chloride (98-107) mmol/L Carbon Dioxide (21-32) mmol/L Anion Gap (3-11) BUN (7-18) mg/dl Creatinine (0.6-1.2) mg/dl Est Cr Clr Drug Dosing Est GFR ( Amer) Est GFR (Non-Af Amer) BUN/Creatinine Ratio (10-20) Glucose (70-99) mg/dl Calcium (8.5-10.1) mg/dl Magnesium (1.8-2.4) mg/dl Total Bilirubin (0.2-1) mg/dl AST (15-37) U/L ALT (12-78) U/L Alkaline Phosphatase (45-117) U/L Troponin I (0-0.045) ng/ml NT-Pro-B Natriuret Pep (0-1800) pg/ml Total Protein (6.4-8.2) gm/dl Albumin (3.4-5.0) gm/dl Globulin (2.5-4.0) gm/dl Albumin/Globulin Ratio (0.9-2) Lipase (73-393) U/L Procalcitonin (0-0.5) ng/ml TSH (0.300-4.500) uIu/ml Free T4 (0.8-1.6) ng/dl Urine Color Urine Appearance (Clear) Urine pH (4.5-7.5) Ur Specific [place] (1.000-1.030) Urine Protein (Negative) Urine Glucose (UA) (Negative) Urine Ketones (Negative) Urine Blood (Negative) Urine Nitrite (Negative) Urine Bilirubin (Negative) Urine Urobilinogen (Negative) Ur Leukocyte Esterase (Negative) COVID-19 Eval Order [facility] at [facility] SARS-CoV-2 (PCR) NEGATIVE (Negative) Influenza Type A (PCR) Negative (Neg) Influenza Type B (PCR) Negative (Neg) RSV (RT-PCR) Negative (Neg) Administered Medications Discontinued Medications Sodium Chloride (Nss 1000ml) 1,000 mls @ 125 mls/hr IV .Q8H STA Stop: 01/07/21 17:20 Last Admin: 01/07/21 11:16 Dose: Not Given Documented by: [id number] Sodium Chloride (Nss 1000ml) 1,000 mls @ 999 mls/hr IV .Q1H1M ONE Stop: 01/07/21 13:56 Last Admin: 01/07/21 13:00 Dose: 125 mls/hr Documented by: [id number] Ceftriaxone Sodium (Rocephin) 1,000 mg in 50 mls @ 100 mls/hr IV NOW STA Stop: 01/07/21 13:25 Last Infusion: 01/07/21 14:00 Dose: 0 mls/hr Documented by: [id number] Admin: 01/07/21 13:30 Dose: 100 mls/hr Documented by: [id number] Imaging Data Radiologist's Impression: Chest X-Ray 01/07/21 09:21 XR chest 1V portable CLINICAL HISTORY: Fever COMPARISON STUDY: 10/28/2020 FINDINGS: The heart is mildly enlarged. There is no failure. There is no focal pulmonary consolidation. There are no pleural effusions.[There is probable left shoulder calcific tendinopathy. There is a healing distal right clavicular fracture. IMPRESSION: No active disease in the chest. ACT 112: Negative or not required by law. Electronically signed by: Ramin Shankar M.D. 01/07/2021 9:[address] 01/07/21 09:21 CT OF THE HEAD WITHOUT CONTRAST CLINICAL HISTORY: Altered mental status. COMPARISON STUDY: Head CT July 24, 2019. MRI of the brain September 13, 2020. TECHNIQUE: Helical axial images of the head were obtained without IV contrast. Automated exposure control was utilized for the study. A dose lowering technique was utilized adhering to the principles of ALARA. FINDINGS: This exam is mildly compromised by motion artifact. No acute intracranial hemorrhage, midline shift or mass effect is present. Mild ventricular dilatation is likely due to atrophy. 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 White matter hypodensity suggests small vessel disease. There are no findings to suggest acute dural sinus thrombosis or acute territorial infarct. Visualized portions of the sinuses and mastoid air cells are clear. There are no significant calvarial abnormalities. IMPRESSION: No acute intracranial findings. ACT 112: Negative or not required by law. Electronically signed by: Jacob Pickering M.D. 01/07/2021 9:50 AM Abdomen/Pelvis CT 01/07/21 09:25 CT SCAN OF THE ABDOMEN AND PELVIS WITHOUT CONTRAST CLINICAL HISTORY: Abdominal pain and altered mental status. COMPARISON STUDY: No previous studies for comparison. TECHNIQUE: CT scan of the abdomen and pelvis was performed from the lung bases to the proximal femurs. Images are reviewed in the axial, sagittal, and coronal planes. IV contrast was not administered for this examination. A dose lowering technique was utilized adhering to the principles of ALARA. CT DOSE: 1065.83 mGy.cm FINDINGS: Lower chest: There is respiratory motion artifact. There is no basilar parenchymal consolidation. The heart is enlarged. Liver: The unenhanced liver is normal in size, contour, and attenuation. There is no intrahepatic biliary ductal dilatation. Gallbladder: Cholelithiasis Spleen: Normal in size and attenuation. Pancreas: Evaluation the pancreas is significantly limited due to the lack of contrast and motion degradation of the examination. No definite pancreatic lesions are visualized Adrenal glands: Unremarkable. Kidneys: There is no hydronephrosis. No renal, ureteral, or bladder calculi are visualized Bowel: There are no transition zones indicate bowel obstruction. There is possible fecal impaction. Stool within the rectum measures 9 cm in diameter. The re is a bowel containing left inguinal hernia. There are no current obstructive changes. Peritoneum: There is no intraperitoneal free air or abdominal ascites. There is a bowel containing left inguinal hernia. There are small fat-containing right inguinal hernia. Vasculature: The abdominal aorta is normal in course and caliber. Adenopathy: Evaluation the retroperitoneum is markedly limited. There is retroperitoneal adenopathy versus unopacified bowel loops. A follow-up study subsequent to intravenous and oral contrast should be considered. Pelvic viscera: Evaluation of the pelvis is markedly limited due to a paucity of intra-abdominal fat and the lack of intravenous and oral contrast. The patient is probably status post a prior hysterectomy. There are pelvic surgical clips. There is right pelvic sidewall adenopathy versus unopacified bowel loops. Again a repeat study following intravenous and oral contrast would be of benefit. There is an indwelling Mendez catheter. Skeletal structures: There is a presumed L5 bone island. There is a sacral decubitus ulcer. Also extensive the level of the bone and there is minimal cortical irregularity. Osteomyelitis cannot be excluded IMPRESSION: 1. Markedly limited study secondary to motion artifact, a paucity of intra- abdominal and pelvic fat, and the lack of intravenous and oral contrast. 2. Nonobstructing bowel containing left inguinal hernia 3. No evidence of bowel obstruction. No evidence of free air 4. Large volume of colonic stool with possible fecal impaction. Stool within the rectum measures 9 cm in diameter 5. Retroperitoneal adenopathy versus unopacified bowel loops. A contrast- enhanced study following bowel prep would be of benefit. 6. Sacral decubitus ulcer which extends to the level of bone. There is mild underlying cortical irregularity and osteomyelitis cannot be excluded ACT 112: Negative or not required by law. Electronically signed by: Ramin Shankar M.D. 01/07/2021 9:55 AM Discharge Plan Visit Data Chief Complaint: Confusion Stated Complaint: CONFUSED/ALTERED ED Provider: Deejay Hassan Discharge Problem: Weakness, Acute dehydration, Decubitus ulcer of sacral area Patient Disposition: Being Evaluated by Hospitalist Condition: Good Forms Stand Alone Forms: [facility] Prescriptions Prescriptions: No Action acetaminophen [Tylenol] 325 mg tablet 325 mg PO Q4H PRN (Reason: Pain) RF: 0 omega-3 fatty acids [Fish Oil Concentrate] 1,000 mg capsule 1,000 mg PO DAILY Qty: 30 RF: 0 multivitamin tablet 1 tab PO DAILY Qty: 30 RF: 0 citalopram 20 mg tablet 20 mg PO DAILY Qty: 30 RF: 2 metoprolol succinate 100 mg tablet extended release 24 hr 100 mg PO DAILY Qty: 30 RF: 5 potassium chloride 20 mEq tablet,ER particles/crystals 20 meq PO DAILY Qty: 30 RF: 5 lisinopril 40 mg tablet 40 mg PO QAM Qty: 30 RF: 3 Ensure High Protein Liquid 1 ea PO DAILY Qty: 30 RF: 0 (DME) Depend Underwear For Women S-M [facility] See Rx Instructions .ROUTE .MEDSUPPLY Qty: 84 RF: 0 levothyroxine 88 mcg tablet 88 mcg PO QAM Qty: 90 RF: 1 miscellaneous medical supply [facility] See Rx Instructions .ROUTE .COMPLEX Qty: 1 RF: 0 topiramate 50 mg tablet 150 mg PO BID 30 Days Qty: 180 RF: 5 memantine 5 mg tablet 5 mg PO BID Qty: 60 RF: 5 fluconazole 200 mg tablet 200 mg PO QAM 180 Days Qty: 180 RF: 0 furosemide 20 mg tablet 20 mg PO DAILY Qty: 30 RF: 2 cholecalciferol (vitamin D3) [Vitamin D3] 50 mcg (2,000 unit) Capsule 50 mcg PO DAILY RF: 0 Combivent Respimat 20-100 mcg/actuation Mist 1 puff INHALATION QID PRN (Reason: Shortness Of Breath Or Wheezing) RF: 0 aspirin 81 mg Tablet,Chewable 81 mg PO DAILY RF: 0 Breo Ellipta 200-25 mcg/dose Blister With Device 1 inh INHALATION DAILY RF: 0 LiquaCel 100 15-100 gram-kcal/30 mL Liquid 1 ea PO QAM RF: 0 Referrals Referrals: Kimberly Michele MD [Primary Care Provider] -
--- NOTE | 2021-01-07 09:57 | CT Scan Report ---
CT SCAN OF THE ABDOMEN AND PELVIS WITHOUT CONTRAST CLINICAL HISTORY: Abdominal pain and altered mental status. COMPARISON STUDY: No previous studies for comparison. TECHNIQUE: CT scan of the abdomen and pelvis was performed from the lung bases to the proximal femurs . Images are reviewed in the axial, sagittal, and coronal planes. IV contrast was not administered fo r this examination. A dose lowering technique was utilized adhering to the principles of ALARA. CT DOSE: 1065.83 mGy.cm FINDINGS: Lower chest: There is respiratory motion artifact. There is no basilar parenchymal consolidation. The heart is enlarged. Liver: The unenhanced liver is normal in size, contour, and attenuation. There is no intrahepatic sara iary ductal dilatation. Gallbladder: Cholelithiasis Spleen: Normal in size and attenuation. Pancreas: Evaluation the pancreas is significantly limited due to the lack of contrast and motion deg radation of the examination. No definite pancreatic lesions are visualized Adrenal glands: Unremarkable. Kidneys: There is no hydronephrosis. No renal, ureteral, or bladder calculi are visualized Bowel: There are no transition zones indicate bowel obstruction. There is possible fecal impaction. S tool within the rectum measures 9 cm in diameter. There is a bowel containing left inguinal hernia. T here are no current obstructive changes. Peritoneum: There is no intraperitoneal free air or abdominal ascites. There is a bowel containing le ft inguinal hernia. There are small fat-containing right inguinal hernia. Vasculature: The abdominal aorta is normal in course and caliber. Adenopathy: Evaluation the retroperitoneum is markedly limited. There is retroperitoneal adenopathy v ersus unopacified bowel loops. A follow-up study subsequent to intravenous and oral contrast should b e considered. Pelvic viscera: Evaluation of the pelvis is markedly limited due to a paucity of intra-abdominal fat and the lack of intravenous and oral contrast. The patient is probably status post a prior hysterecto my. There are pelvic surgical clips. There is right pelvic sidewall adenopathy versus unopacified bow el loops. Again a repeat study following intravenous and oral contrast would be of benefit. There is an indwelling Mendez catheter. Skeletal structures: There is a presumed L5 bone island. There is a sacral decubitus ulcer. Also exte nsive the level of the bone and there is minimal cortical irregularity. Osteomyelitis cannot be exclu ded IMPRESSION: 1. Markedly limited study secondary to motion artifact, a paucity of intra-abdominal and pelvic fat, and the lack of intravenous and oral contrast. 2. Nonobstructing bowel containing left inguinal hernia 3. No evidence of bowel obstruction. No evidence of free air 4. Large volume of colonic stool with possible fecal impaction. Stool within the rectum measures 9 cm in diameter 5. Retroperitoneal adenopathy versus unopacified bowel loops. A contrast-enhanced study following bow el prep would be of benefit. 6. Sacral decubitus ulcer which extends to the level of bone. There is mild underlying cortical irreg ularity and osteomyelitis cannot be excluded ACT 112: Negative or not required by law. Electronically signed by: Ramin Shankar M.D. 01/07/2021 9:55 AM
--- NOTE | 2021-01-07 09:59 | XRay Report ---
XR chest 1V portable CLINICAL HISTORY: Fever COMPARISON STUDY: 10/28/2020 FINDINGS: The heart is mildly enlarged. There is no failure. There is no focal pulmonary consolidatio n. There are no pleural effusions.[There is probable left shoulder calcific tendinopathy. There is a healing distal right clavicular fracture. IMPRESSION: No active disease in the chest. ACT 112: Negative or not required by law. Electronically signed by: Ramin Shankar M.D. 01/07/2021 9:58 AM
[2021-01-07 10:28] LABS: Basophils # (auto) 0.08 K/uL (0-0.2); Basophils % (auto) 1.3 %; Eosinophils # (auto) 0.42 K/uL (0-0.5); Eosinophils % (auto) 6.8 %; Hematocrit (blood only) 32.4 % (37-47); Hemoglobin 10.3 g/dL (12.0-16.0); Immature Granulocytes # (auto) 0.04 K/uL (0.00-0.02); Immature Granulocytes % (auto) 0.6 %; Lymphocytes # (auto) 0.73 K/uL (1.2-3.4); Lymphocytes % (auto) 11.8 %; Mean Corpuscular Hgb Conc 31.8 g/dL (32-36); Mean Corpuscular Volume 94.5 fL (80-100); Mean Platelet Volume 9.2 fL (7.4-10.4); Monocytes # (auto) 0.35 K/uL (0.11-0.59); Monocytes % (auto) 5.7 %; Neutrophils # (auto) 4.57 K/uL (1.4-6.5); Neutrophils % (auto) 73.8 %; Platelet Count 293 K/uL (130-400); RDW Coefficient of Variation 18.3 % (11.5-14.5); RDW Standard Deviation 62.3 fL (36.4-46.3); Red Blood Count 3.43 M/uL (4.2-5.4); White Blood Count 6.19 K/uL (4.8-10.8)
[2021-01-07 10:38] LABS: Partial Thromboplastin Ratio 0.8; Partial Thromboplastin Time 22.2 Seconds (21.0-31.0); Prothrombin Time 10.6 Seconds (9.0-12.0)
[2021-01-07 10:42] LABS: Alanine Aminotransferase 20 U/L (12-78); Albumin Level 2.5 gm/dl (3.4-5.0); Aspartate Aminotransferase 25 U/L (15-37); BUN Creatinine Ratio 37.6 (10-20); Blood Urea Nitrogen 40 mg/dl (7-18); Calcium 9.4 mg/dl (8.5-10.1); Carbon Dioxide 23 mmol/L (21-32); Chloride 116 mmol/L (98-107); Est GFR (African American) 55.6; Glucose 128 mg/dl (70-99); Lipase 184 U/L (73-393); Magnesium 2.4 mg/dl (1.8-2.4); Potassium 4.1 mmol/L (3.5-5.1); Sodium 146 mmol/L (136-145)
[2021-01-07 10:53] LABS: Albumin Globulin Ratio 0.6 (0.9-2); Alkaline Phosphatase 96 U/L (45-117); Bilirubin,Total 0.2 mg/dl (0.2-1); Globulin 4.2 gm/dl (2.5-4.0); NT Pro B Type Natriuretic Pept 1682 pg/ml (0-1800); Total Protein 6.7 gm/dl (6.4-8.2); Troponin I < 0.015 ng/ml (0-0.045)
[2021-01-07 11:06] LABS: T4 Free Thyroxine 0.74 ng/dl (0.8-1.6)
--- NOTE | 2021-01-07 12:31 | Electrocardiogram Report ---
Test Reason : Blood Pressure : / mmHG Vent. Rate : 062 BPM Atrial Rate : 062 BPM P-R Int : 162 ms QRS Dur : 088 ms QT Int : 470 ms P-R-T Axes : 065 -45 021 degrees QTc Int : 477 ms Poor data quality, interpretation may be adversely affected Normal sinus rhythm Poor R wave progression, consider anterior PR vs. lead placement vs. LVH Left anterior fascicular block Abnormal ECG When compared with ECG of 11-NOV-2020 06:48, Nonspecific T wave abnormality no longer present Confirmed by Tyrell Sands ([id number]) on 01/07/2021 12:31:37 PM Referred By: REFERRED SELF Confirmed By:Tyrell Sands
[2021-01-07 12:38] LABS: Appearance Urine Clear (Clear); Bilirubin Urine Negative (Negative); Blood Urine Negative (Negative); Color Urine Yellow; Glucose Urine UA Negative (Negative); Ketones Urine Negative (Negative); Leukocyte Esterase Urine Negative (Negative); Nitrite Urine Negative (Negative); Protein Urine Negative (Negative); Specific Gravity Urine 1.013 (1.000-1.030); Urobilinogen Urine Negative (Negative)
[2021-01-07] MEDS ORDERED: SODIUM CHLORIDE 0.9% 1000ML 1,000 ML IV ONE (12:56)
[2021-01-07] MEDS ORDERED: cefTRIAXone SODIUM 1,000 MG/50 ML BAG IV STA (12:56)
[2021-01-07 13:52] LABS: Influenza A virus by PCR Negative (Neg); Influenza B virus by PCR Negative (Neg); RSV by PCR Negative (Neg); SARS CoV2 RNA(COVID-19) InHosp NEGATIVE (Negative)
--- NOTE | 2021-01-07 14:15 | History & Physical Report ---
Date of Service January 07, 2021 Assessment & Plan (1) Sacral decubitus ulcer, stage IV: 85 yo F with pMHx. of parkinsonism, HTN, hypothyroidism, COPD, CHF presenting with concerns of confusion admitted for dehydration and worsening decubitus ulcer. AMS -In setting of Parkinson's dementia with underlying memory loss -Likely multifactorial - most likely due to dehydration from poor PO intake in the setting of being on diuretics. -Less likely due to sacral decubitus infection. See management below -Chest x-ray and UA without concern of infection. Head CT negative Sacral decubitus ulcer, stage IV -Admit to med surg -Abd/Pelvis CT: Sacral decubitus ulcer which extends to the level of bone. There is mild underlying cortical irregularity and osteomyelitis cannot be excluded -Has had decub ulcer debridement during last admit november 2019 and was noted to have osteomyelitis during operation. -Less likely this osteomyelitis is new -For now Started Daptomycin for MRSA coverage, Zosyn for anaerobic coverage -blood and wound cultures ordered -Wound Care Consulted. Consideration for wound VAC -Arsen ID consulted -cont Fluconazole 200 mg p.o. 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 Clear to auscultation on exam today -SaO2 95% on room air. Goal is to maintain SaO2 between 88 and 92% -No acute exacerbation at this time -Hold DuoNebs as patient not bronchospastic, hypoxic, tachypneic Anemia -Most likely secondary to chronic disease -Baseline hemoglobin is 10 to 11 g/Cristela. On admission hgb 10.3 Parkinsonism -Continue memantine -Ambulation with assistance -Continue fall and aspiration precautions Hypertension -holding metoprolol succinate 2/2 bradycardia . 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 Soft diet and thicken liquids DVT prophylaxis: Heparin 5000 units SQ every 12 hours CODE STATUS: DNR/DNI (POLST form in chart) Dispo: Med Surg. PT/OT evals pending. Consider Palliative consult. History of Present Illness Chief Complaint: confusion Primary Care Provider: Kimberly Michele MD 85-year-old female with past medical history of end-stage parkinsonism, hypertension, hypothyroidism, COPD, CHF (EF 55-60% 05/22/19 w/ grade I diastolic disfunction), CKD 3A presents from home and is accompanied by daughter who provides history. This daughter is separate from the daughter lives with patient. Patient was previously managed for hospital from 10/28/20 - 11/13/20 for concerns of sacral decubitus ulcer and osteomyelitis. She was discharged to a facility where she required IV antibiotics Unasyn for 6 weeks. Wound culture from 11/01 grew Bacteroides thetaiotaomicron and Anaerobic gram positive bacilli. Wound culture from 12/21 growing Pseudomonas mendocina. Most recently patient finished a 14-day course of p.o. Cipro for this. Patient follows with wound care as an outpatient, last seen 01/04/21. Plan was to be seen for a wound vac to be placed today DEPUTY DIRECTOR. However this morning patient was noted to be confused and unresponsive prompting a visit to the ED. Daughter notes that they had an appointment with ID at [facility] on December 23. Additionally notes that prior to this morning patient had no other acute concerns or complaints and seemed at baseline. Pertinent labs: Hemoglobin 10.3, sodium 146, chloride 116, BUN 40, albumin 2.5, TSH 21, free T4 0.74 CXR: No active disease in the chest. Head CT: No acute intracranial findings. Abd/Pelvis CT: Sacral decubitus ulcer which extends to the level of bone. There is mild underlying cortical irregularity and osteomyelitis cannot be excluded ER course: IVF, Rocephin Allergies Allergy/AdvReac Type Severity Reaction Status Date / Time baclofen Allergy Intermediate Tremor Verified 01/07/21 10:16 levetiracetam AdvReac Intermediate MADE FEEL Verified 01/07/21 10:16 FUNNY Home Medications Medication Instructions Recorded Confirmed Type multivitamin 1 tab PO DAILY #30 tab 02/07/19 01/07/21 Rx omega-3 fatty acids 1,000 mg 1,000 mg PO DAILY #30 cap 02/07/19 01/07/21 Rx capsule topiramate 50 mg tablet 150 mg PO BID 30 Days #180 tab 04/23/20 01/07/21 Rx citalopram 20 mg tablet 20 mg PO DAILY #30 tab 05/21/20 01/07/21 Rx metoprolol succinate 100 mg 100 mg PO DAILY #30 tab 07/18/20 01/07/21 Rx tablet,extended release 24 hr potassium chloride 20 mEq 20 meq PO DAILY #30 tab 07/18/20 01/07/21 Rx tablet,extended release(part/cryst) memantine 5 mg tablet 5 mg PO BID #60 tab 07/24/20 01/07/21 Rx lisinopril 40 mg tablet 40 mg PO QAM #30 tab 09/04/20 01/07/21 Rx diaper,brief,adult,disposable #84 ea 10/22/20 01/03/21 Rx food supplemt, lactose-reduced 1 ea PO DAILY #30 btl 10/22/20 01/07/21 Rx levothyroxine 88 mcg tablet 88 mcg PO QAM #90 tab 10/23/20 01/07/21 Rx Combivent Respimat 1 puff INHALATION QID PRN 10/28/20 01/07/21 History cholecalciferol (vitamin D3) 50 mcg PO DAILY 10/28/20 01/07/21 History [Vitamin D3] acetaminophen 325 mg tablet 325 mg PO Q4H PRN tab 12/14/20 01/07/21 History miscellaneous medical supply See Rx Instructions .ROUTE 12/24/20 01/07/21 Rx .COMPLEX #1 ea fluconazole 200 mg tablet 200 mg PO QAM 180 Days #180 tab 12/27/20 01/07/21 Rx furosemide 20 mg tablet 20 mg PO DAILY #30 tab 12/27/20 01/07/21 Rx amino acids-protein hydrolys 1 ea PO QAM 01/07/21 01/07/21 History [LiquaCel 100] aspirin 81 mg PO DAILY 01/07/21 01/07/21 History fluticasone furoate-vilanterol 1 inh INHALATION DAILY 01/07/21 01/07/21 History [Breo Ellipta] Past Med/Surg History Medical History Acute UTI Blood in stool COPD (chronic obstructive pulmonary disease) Facial nerve disorder Hemifacial spasm Lower leg edema Osteoporosis Tremor Surgical History H/O breast biopsy Family History Denies family history of Ovarian cancer Prostate cancer Myocardial infarction Breast cancer Colorectal cancer Social History Smoking Status: Unknown if ever smoked Tobacco Type: Cigarettes Second Hand Exposure: No; Preferred Language: Armenian Communication Ability: Effective Visual Impairment: No Limitations Hearing Ability: Normal Seo Manager Required: No Beliefs That Will Affect Care: None marital status: Current Living Situation: Family Current Living Situation Comment: lives with daughter Loren current occupational status: retired Other Information That Helps Us Care for You: No Feels Safe at Home: Yes Dental Care, Regularly: No Physical Activity Frequency: Does not Exercise Seatbelt Use: always Assistive Devices: None Review of Systems Review of Systems: Unobtainable due to cognitive status Physical Exam Constitutional: + ill appearing; no acute distress Eyes: PERRL, conjunctivae normal, anicteric sclerae Respiratory: normal respiratory effort, lungs clear to auscultation Cardiovascular: Rate/Rhythm: regular rhythm and + bradycardic Gastrointestinal (Abdomen): normal bowel sounds, soft, nontender, no hepatosplenomegaly Skin: + ulcer (large sacral decubitus ulcer) Psychiatric: Orientation: alert Slow speech suspected to be secondary to parkinsonian characteristics Results & Data Results & Data ([facility]) Vital Signs (Past 12 Hours) Vital Signs Temp Pulse Resp BP Pulse Ox 01/07/21 13:37 56 L 13 130/80 97 01/07/21 13:02 56 L 17 135/66 99 01/07/21 12:30 54 L 17 129/63 98 01/07/21 12:00 53 L 13 102/54 L 99 01/07/21 11:30 53 L 21 97 01/07/21 10:30 55 L 14 126/69 98 01/07/21 10:17 57 L 14 127/60 97 01/07/21 09:03 129/74 01/07/21 09:00 37.6 C H 66 20 129/74 97 Laboratory Results Laboratory Results - last 24 hr 01/07/21 01/07/21 01/07/21 10:11 10:11 10:11 WBC 6.19 RBC 3.43 L Hgb 10.3 L Hct 32.4 L MCV 94.5 MCH 30.0 MCHC 31.8 L RDW Std Deviation 62.3 H RDW Coeff of Phan 18.3 H Plt Count 293 MPV 9.2 Immature Gran % (Auto) 0.6 Neut % (Auto) 73.8 Lymph % (Auto) 11.8 Walton % (Auto) 5.7 Eos % (Auto) 6.8 Baso % (Auto) 1.3 Neut # (Auto) 4.57 Lymph # (Auto) 0.73 L Walton # (Auto) 0.35 Eos # (Auto) 0.42 Baso # (Auto) 0.08 Immature Gran # (Auto) 0.04 H ESR 17 PT 10.6 INR 1.0 APTT 22.2 PTT Ratio 0.8 Sodium Potassium Chloride Carbon Dioxide Anion Gap BUN Creatinine Est Cr Clr Drug Dosing Est GFR ( Amer) Est GFR (Non-Af Amer) BUN/Creatinine Ratio Glucose Calcium Magnesium Total Bilirubin AST ALT Alkaline Phosphatase Troponin I NT-Pro-B Natriuret Pep Total Protein Albumin Globulin Albumin/Globulin Ratio Lipase Procalcitonin TSH Free T4 Urine Color Urine Appearance Urine pH Ur Specific [place] Urine Protein Urine Glucose (UA) Urine Ketones Urine Blood Urine Nitrite Urine Bilirubin Urine Urobilinogen Ur Leukocyte Esterase COVID-19 Eval Order SARS-CoV-2 (PCR) Influenza Type A (PCR) Influenza Type B (PCR) RSV (RT-PCR) 01/07/21 01/07/21 01/07/21 10:11 10:11 12:19 WBC RBC Hgb Hct MCV MCH MCHC RDW Std Deviation RDW Coeff of Phan Plt Count MPV Immature Gran % (Auto) Neut % (Auto) Lymph % (Auto) Walton % (Auto) Eos % (Auto) Baso % (Auto) Neut # (Auto) Lymph # (Auto) Walton # (Auto) Eos # (Auto) Baso # (Auto) Immature Gran # (Auto) ESR PT INR APTT PTT Ratio Sodium 146 H Potassium 4.1 Chloride 116 H Carbon Dioxide 23 Anion Gap 8.0 BUN 40 H Creatinine 1.07 Est Cr Clr Drug Dosing Not Reportable Est GFR ( Amer) 55.6 Est GFR (Non-Af Amer) 48.0 BUN/Creatinine Ratio 37.6 H Glucose 128 H Calcium 9.4 Magnesium 2.4 Total Bilirubin 0.2 AST 25 ALT 20 Alkaline Phosphatase 96 Troponin I < 0.015 NT-Pro-B Natriuret Pep 1682 Total Protein 6.7 Albumin 2.5 L Globulin 4.2 H Albumin/Globulin Ratio 0.6 L Lipase 184 Procalcitonin < 0.05 TSH 21.000 H Free T4 0.74 L Urine Color Yellow Urine Appearance Clear Urine pH 7.0 Ur Specific [place] 1.013 Urine Protein Negative Urine Glucose (UA) Negative Urine Ketones Negative Urine Blood Negative Urine Nitrite Negative Urine Bilirubin Negative Urine Urobilinogen Negative Ur Leukocyte Esterase Negative COVID-19 Eval Order SARS-CoV-2 (PCR) Influenza Type A (PCR) Influenza Type B (PCR) RSV (RT-PCR) 01/07/21 01/07/21 12:55 12:55 WBC RBC Hgb Hct MCV MCH MCHC RDW Std Deviation RDW Coeff of Phan Plt Count MPV Immature Gran % (Auto) Neut % (Auto) Lymph % (Auto) Walton % (Auto) Eos % (Auto) Baso % (Auto) Neut # (Auto) Lymph # (Auto) Walton # (Auto) Eos # (Auto) Baso # (Auto) Immature Gran # (Auto) ESR PT INR APTT PTT Ratio Sodium Potassium Chloride Carbon Dioxide Anion Gap BUN Creatinine Est Cr Clr Drug Dosing Est GFR ( Amer) Est GFR (Non-Af Amer) BUN/Creatinine Ratio Glucose Calcium Magnesium Total Bilirubin AST ALT Alkaline Phosphatase Troponin I NT-Pro-B Natriuret Pep Total Protein Albumin Globulin Albumin/Globulin Ratio Lipase Procalcitonin TSH Free T4 Urine Color Urine Appearance Urine pH Ur Specific [place] Urine Protein Urine Glucose (UA) Urine Ketones Urine Blood Urine Nitrite Urine Bilirubin Urine Urobilinogen Ur Leukocyte Esterase COVID-19 Eval Order CovFluRsv at [facility] SARS-CoV-2 (PCR) NEGATIVE Influenza Type A (PCR) Negative Influenza Type B (PCR) Negative RSV (RT-PCR) Negative Code Status & VTE Plan Code Status DNR/DNI Supervising Physician Co-Signing Physician Notes Resident Physician Supervision Note: I independently interviewed and examined the patient and verified the rubio history and physical, reviewed labs and image studies, discussed the case with the resident Dr. Shantanu Colon and agree with the findings and care plan. Resident Activity Tracking Resident Involvement: Resident Care Provided Care Provided: Adult [facility]
[2021-01-07] MEDS ORDERED: ALUMINUM/MAGNESIUM SUSP 30 ML UDC PO PRN (16:57)
[2021-01-07] MEDS ORDERED: ONDANSETRON INJ 2 MG/ML 2 ML VIAL IV PRN (16:57)
[2021-01-07] MEDS ORDERED: PIPERACILL/TAZOBAC CONSULT ACTIVE PRN (16:57)
[2021-01-07] MEDS ORDERED: ACETAMINOPHEN 325 MG TAB PO PRN (16:57)
[2021-01-07] MEDS ORDERED: PIPERACILLIN/TAZOBACTAM 3.375 GM in DEXTROSE 5% 100 ML IV ONE (17:15)
[2021-01-07] MEDS ORDERED: DAPTOmycin 275 MG in SYRINGE 0 ML IV ONE (17:30)
[2021-01-07] MEDS: SODIUM CHLORIDE 0.9% 1000ML 1,000 ML IV SCH (18:10)
[2021-01-07] MEDS ORDERED: MELATONIN 3 MG TAB PO PRN (18:37)
[2021-01-07] MEDS: DOCUSATE SODIUM 100 MG CAP PO SCH (20:23)
[2021-01-07] MEDS: TOPIRAMATE 50 MG TAB PO SCH (20:23)
[2021-01-07] MEDS: MEMANTINE HCL 5 MG TAB PO SCH (20:23)
[2021-01-07] MEDS: HEPARIN SOD 5,000 UNIT/0.5 ML VIAL SQ SCH (20:23)
[2021-01-07] MEDS: POLYETHYLENE (MIRALAX) 17 GM PACK PO SCH (20:24)
[2021-01-07] MEDS: PIPERACILLIN/TAZOBACTAM 3.375 GM in DEXTROSE 5% 100 ML IV SCH (23:25)
[2021-01-08 06:30] LABS: Basophils # (auto) 0.08 K/uL (0-0.2); Basophils % (auto) 1.4 %; Eosinophils # (auto) 0.74 K/uL (0-0.5); Eosinophils % (auto) 12.7 %; Hematocrit (blood only) 29.6 % (37-47); Hemoglobin 9.7 g/dL (12.0-16.0); Immature Granulocytes # (auto) 0.02 K/uL (0.00-0.02); Immature Granulocytes % (auto) 0.3 %; Mean Corpuscular Hemoglobin 30.8 pg (25-34); Mean Corpuscular Hgb Conc 32.8 g/dL (32-36); Mean Platelet Volume 9.1 fL (7.4-10.4); Monocytes # (auto) 0.36 K/uL (0.11-0.59); Monocytes % (auto) 6.2 %; Neutrophils # (auto) 3.93 K/uL (1.4-6.5); Neutrophils % (auto) 67.4 %; Platelet Count 243 K/uL (130-400); RDW Coefficient of Variation 18.2 % (11.5-14.5); RDW Standard Deviation 61.7 fL (36.4-46.3); Red Blood Count 3.15 M/uL (4.2-5.4); White Blood Count 5.83 K/uL (4.8-10.8)
[2021-01-08] MEDS ORDERED: LEVOTHYROXINE SODIUM 100 MCG TABLET PO SCH (06:30)
[2021-01-08] MEDS ORDERED: LEVOTHYROXINE SODIUM 88 MCG TABLET PO SCH (06:30)
[2021-01-08 07:14] LABS: BUN Creatinine Ratio 33.8 (10-20); Calcium 8.7 mg/dl (8.5-10.1); Creatinine Clr Calc Pharmacy 28.9 ml/min; Est GFR (African American) 68.5; Est GFR (Non-African American) 59.1; Potassium 3.4 mmol/L (3.5-5.1)
[2021-01-08] MEDS ORDERED: D5W AND 1/2NSS 1,000 ML IV SCH (07:30)
[2021-01-08] MEDS ORDERED: POTASSIUM CHLORIDE CRTAB 20 MEQ TABCR PO STA (07:42)
[2021-01-08] MEDS: SODIUM CHLORIDE 0.9% 1000ML 1,000 ML IV SCH (08:30)
[2021-01-08] MEDS: PIPERACILLIN/TAZOBACTAM 3.375 GM in DEXTROSE 5% 100 ML IV SCH (08:48)
[2021-01-08] MEDS: HEPARIN SOD 5,000 UNIT/0.5 ML VIAL SQ SCH ×2 (08:55→21:46)
[2021-01-08] MEDS: CITALOPRAM 20 MG TAB PO SCH (11:13)
[2021-01-08] MEDS: MEMANTINE HCL 5 MG TAB PO SCH ×2 (11:13→21:34)
[2021-01-08] MEDS: lisinopril 40 MG TAB PO SCH (11:14)
[2021-01-08] MEDS: ASPIRIN 81 MG ECTAB PO SCH (11:14)
[2021-01-08] MEDS: TOPIRAMATE 50 MG TAB PO SCH ×2 (11:16→21:35)
[2021-01-08] MEDS: DOCUSATE SODIUM 100 MG CAP PO SCH ×2 (11:16→21:38)
[2021-01-08] MEDS: MULTIVITAMIN TAB PO SCH (11:16)
[2021-01-08] MEDS: POLYETHYLENE (MIRALAX) 17 GM PACK PO SCH (11:26)
[2021-01-08] MEDS: FLUCONAZOLE 100 MG TAB PO SCH (11:26)
--- NOTE | 2021-01-08 19:35 | Hospitalist Progress Note ---
Date of Service January 08, 2021 Assessment & Plan (1) Sacral decubitus ulcer, stage IV: 85 yo F with pMHx. of end-stage parkinsonism and a stage IV sacral decubitus ulcer with underlying osteomyelitis who was admitted on 01/07/21 for altered mental status. After discussion with family today, plan is to move towards palliative approach. AMS -In setting of Parkinson's dementia with underlying memory loss -Likely multifactorial - most likely due to dehydration from poor PO intake in the setting of being on diuretics. -Less likely due to sacral decubitus infection. See management below -Chest x-ray and UA without concern of infection. Head CT negative Sacral decubitus ulcer, stage IV - chronic -Abd/Pelvis CT: Sacral decubitus ulcer which extends to the level of bone. There is mild underlying cortical irregularity and osteomyelitis cannot be excluded -Has had decub ulcer debridement during last admit november 2020 and was noted to have osteomyelitis during operation. -Less likely this osteomyelitis is new -patient afebrile, normal HR. WBC normal. blood and wound cultures showing no growth to date. Antibiotics discontinued. -Wound Care Consulted. Consideration for wound VAC placement -cont Fluconazole 200 mg p.o. 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 Clear to auscultation on exam today -SaO2 95% on room air. Goal is to maintain SaO2 between 88 and 92% -No acute exacerbation at this time -Hold DuoNebs as patient not bronchospastic, hypoxic, tachypneic Anemia -Most likely secondary to chronic disease -Baseline hemoglobin is 10 to 11 g/Cristela. On admission hgb 10.3 Parkinsonism -Continue memantine -Ambulation with assistance -Continue fall and aspiration precautions Hypertension -holding metoprolol succinate 2/2 bradycardia . Holding Lasix as below -cont Lisinopril 40 mg daily Hypothyroidism: -uncontrolled - TSH elevated to 21 on admission; free T4 low - uncertain if patient has been compliant with home dose of replacement vs. 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 Soft diet and thicken liquids DVT prophylaxis: Heparin 5000 units SQ every 12 hours CODE STATUS: DNR/DNI (POLST form in chart) Dispo: Med Surg. PT/OT evals pending. Palliative consult placed. Admission and Anticipated Discharge Date Admission Date: January 07, 2021 Supervising Physician Co-Signing Physician Notes Resident Physician Supervision Note: I independently interviewed and examined the patient and verified the rubio history and physical, reviewed labs and image studies, discussed the case with the resident Dr. Brumfield and agree with the findings and care plan. Subjective no acute events overnight. Patient is unable to response to questions upon exam today. Spoke with family: desire to pursue palliative care route moving foward. Review of Systems Review of Systems: Unobtainable due to cognitive status Physical Exam Constitutional: WD/WN, vitals as above + frail appearing arousable to sternal rub. Unable to respond to questions Eyes: + anicteric sclerae ENMT: external ear and nose normal, oropharynx normal Neck: normal visual inspection and trachea midline Respiratory: normal respiratory effort, lungs clear to auscultation Cardiovascular: RRR, no murmur, no edema Skin: no rashes, warm and dry Genitourinary: Meléndez catheter in place, draining yellow urine without visible blood clots Results & Data Results & Data ([facility]) Vital Signs (Past 12 Hours) Vital Signs Temp Pulse Resp BP Pulse Ox 01/08/21 15:33 36.7 C 60 16 121/70 91 Resident Activity Tracking Resident Involvement: Resident Care Provided Care Provided: Adult Hospital Medicine
[2021-01-09] MEDS: LEVOTHYROXINE SODIUM 88 MCG TABLET PO SCH (05:30)
[2021-01-09 07:56] LABS: BUN Creatinine Ratio 28.8 (10-20); Calcium 8.8 mg/dl (8.5-10.1); Creatinine Clr Calc Pharmacy 32.9 ml/min; Est GFR (African American) 80.2; Est GFR (Non-African American) 69.2; Potassium 3.1 mmol/L (3.5-5.1)
[2021-01-09 07:58] LABS: Phosphorus 2.6 mg/dl (2.5-4.9)
[2021-01-09] MEDS: CITALOPRAM 20 MG TAB PO SCH (08:34)
[2021-01-09] MEDS: TOPIRAMATE 50 MG TAB PO SCH ×2 (08:34→21:36)
[2021-01-09] MEDS: DOCUSATE SODIUM 100 MG CAP PO SCH ×2 (08:35→21:35)
[2021-01-09] MEDS: POLYETHYLENE (MIRALAX) 17 GM PACK PO SCH (08:35)
[2021-01-09] MEDS: ASPIRIN 81 MG ECTAB PO SCH (08:35)
[2021-01-09] MEDS: MEMANTINE HCL 5 MG TAB PO SCH ×2 (08:35→21:36)
[2021-01-09] MEDS: MULTIVITAMIN TAB PO SCH (08:36)
[2021-01-09] MEDS: lisinopril 40 MG TAB PO SCH (08:36)
[2021-01-09] MEDS: FLUCONAZOLE 100 MG TAB PO SCH (08:36)
[2021-01-09] MEDS: HEPARIN SOD 5,000 UNIT/0.5 ML VIAL SQ SCH ×2 (08:37→21:36)
[2021-01-09] MEDS: NSS + 20MEQ KCL 20 MEQ/1,000 ML BAG IV SCH ×2 (09:34→21:34)
--- NOTE | 2021-01-09 10:07 | Palliative Care Consultation ---
Date of Consultation January 09, 2021 Assessment & Plan (1) Palliative care encounter: On previous admission, Teresa had expressed interest in discussing goals of care. Case management notes indicate that family is interested in palliative care discussion. We will continue to try to reach out to them to discuss goals of care. I spoke to Lroen who has been caring for Gertrudis at home. She says that her mother has not talked much about what she would want for her care. She notices that she is sleeping more, less interactive and eating very little. She asked about whether her medications could be causing this. We reviewed her medications and discussed the idea that this is more likely related to disease progression and overall decline. oLren tells me that they have been thinking that this is the cause. She and Teresa have been thinking that Gertrudis is tired getting ready for her dying time. We talked about how she felt about returning to the hospital and she says that Gertrudis doesn't like coming to the hospital and would want to be at home. We discussed hospice care as a way to focus on her comfort and help her remain at home. They are going to talk about this together and we will followup with a phone call tomorrow afternoon. (2) Parkinsonism: Parkinsonism type: unspecified Qualified Code(s): G20 - Parkinson's disease (3) Osteomyelitis: (4) Sacral decubitus ulcer, stage IV: (5) COPD (chronic obstructive pulmonary disease): (6) Stage 3a chronic kidney disease: (7) Metabolic encephalopathy: (8) Chronic diastolic (congestive) heart failure: History of Present Illness Reason for Consultation: goals of care Requesting Physician: Dr. Lyles Attending Physician: Janie Knight MD History of Present Illness 85 yo lady with advanced Parkinson's disease and Stage IV sacral decubitus ulcer. She had been hospitalized in November and found to have sacral osteomyelitis at that time. She is followed by the wound center and had been at [facility] after her previous admission. She had returned home and was living with her daughter, Loren. She is readmitted with mental status changes and is being treated for dehydration and hypernatremia. We have been consulted to assist with goals of care. Gertrudis was seen by palliative medicine on her previous admission and at that time had indicated that she had had enough of treatment. She and her daughters were going to discuss her goals for care as Loren and her sister, Teresa, are coPOAs. Gertrudis does not recall that conversation. She does not respond to questions about whether there are particular priorities or limits for her care. She seems confused and asks me where Loren is. I tried to call both Loren and Teresa but there was no answer at either number. Allergies Allergy/AdvReac Type Severity Reaction Status Date / Time baclofen Allergy Intermediate Tremor Verified 01/07/21 10:16 levetiracetam AdvReac Intermediate MADE FEEL Verified 01/07/21 10:16 FUNNY Home Medications Medication Instructions Recorded Confirmed Type multivitamin 1 tab PO DAILY #30 tab 02/07/19 01/07/21 Rx omega-3 fatty acids 1,000 mg 1,000 mg PO DAILY #30 cap 02/07/19 01/07/21 Rx capsule topiramate 50 mg tablet 150 mg PO BID 30 Days #180 tab 04/23/20 01/07/21 Rx citalopram 20 mg tablet 20 mg PO DAILY #30 tab 05/21/20 01/07/21 Rx metoprolol succinate 100 mg 100 mg PO DAILY #30 tab 07/18/20 01/07/21 Rx tablet,extended release 24 hr potassium chloride 20 mEq 20 meq PO DAILY #30 tab 07/18/20 01/07/21 Rx tablet,extended release(part/cryst) memantine 5 mg tablet 5 mg PO BID #60 tab 07/24/20 01/07/21 Rx lisinopril 40 mg tablet 40 mg PO QAM #30 tab 09/04/20 01/07/21 Rx diaper,brief,adult,disposable #84 ea 10/22/20 01/03/21 Rx food supplemt, lactose-reduced 1 ea PO DAILY #30 btl 10/22/20 01/07/21 Rx levothyroxine 88 mcg tablet 88 mcg PO QAM #90 tab 10/23/20 01/07/21 Rx Combivent Respimat 1 puff INHALATION QID PRN 10/28/20 01/07/21 History cholecalciferol (vitamin D3) 50 mcg PO DAILY 10/28/20 01/07/21 History [Vitamin D3] acetaminophen 325 mg tablet 325 mg PO Q4H PRN tab 12/14/20 01/07/21 History miscellaneous medical supply See Rx Instructions .ROUTE 12/24/20 01/07/21 Rx .COMPLEX #1 ea fluconazole 200 mg tablet 200 mg PO QAM 180 Days #180 tab 12/27/20 01/07/21 Rx furosemide 20 mg tablet 20 mg PO DAILY #30 tab 12/27/20 01/07/21 Rx amino acids-protein hydrolys 1 ea PO QAM 01/07/21 01/07/21 History [LiquaCel 100] aspirin 81 mg PO DAILY 01/07/21 01/07/21 History fluticasone furoate-vilanterol 1 inh INHALATION DAILY 01/07/21 01/07/21 History [Breo Ellipta] Patient History Medical History Acute UTI Blood in stool COPD (chronic obstructive pulmonary disease) Facial nerve disorder Hemifacial spasm Lower leg edema Osteoporosis Tremor Surgical History H/O breast biopsy Family History Denies family history of Ovarian cancer Prostate cancer Myocardial infarction Breast cancer Colorectal cancer Social History Smoking Status: Unknown if ever smoked Tobacco Type: Cigarettes Second Hand Exposure: No; Preferred Language: Sudanese Communication Ability: Unable Visual Impairment: No Limitations Hearing Ability: Normal [place] Rug [employer]ter Required: No Beliefs That Will Affect Care: None marital status: Current Living Situation: Family Current Living Situation Comment: lives with daughter Loren current occupational status: retired Other Information That Helps Us Care for You: No Feels Safe at Home: Yes Dental Care, Regularly: No Physical Activity Frequency: Does not Exercise Seatbelt Use: always Assistive Devices: None Review of Systems Review of Systems: [place] Symptom Assessment Scale Pain 0/3 Dyspnea 0/3 Anxiety 1/3 Drowsiness 0/3 Palliative Performance Score 30% Physical Exam Constitutional: + thin and + frail appearing ENMT: Mouth: + dry oral mucous membranes Respiratory: normal respiratory effort; no labored breathing Cardiovascular: Extremities: no edema Gastrointestinal (Abdomen): Percussion/Palpation: abdomen nontender Musculoskeletal: Extremities: + muscle atrophy contractures Skin: sacral dressing intact Neurologic: awake and + confused Psychiatric: Affect: + flat affect Results & Data ([facility]) Vital Signs (Past 12 Hours) Vital Signs Temp Pulse Resp BP Pulse Ox 01/09/21 07:26 98.2 F 56 L 14 128/61 96 01/08/21 23:51 97.7 F 77 14 125/64 92 PG Care Time/CCT Total # of Minutes Spent Total Time Spent with Patient: Total time spent is greater than 50% in coordination of care (as documented) at patient's floor/unit and/or counseling patient:total time spent 60 minutes with more than 50% of time spent on goals of care, hospice, family education and support, prognosis. Coding Level of Care Code 74503 Inpt Consult Level 3 Diagnoses Palliative care encounter Z51.5 Parkinsonism G20 Parkinsonism type: unspecified Osteomyelitis M86.9 Sacral decubitus ulcer, stage IV L89.154 COPD (chronic obstructive pulmonary disease) J44.9 Stage 3a chronic kidney disease N18.31 Metabolic encephalopathy G93.41 Chronic diastolic (congestive) heart failure I50.32
--- NOTE | 2021-01-09 12:46 | Hospitalist Progress Note ---
Date of Service January 09, 2021 Assessment & Plan (1) Sacral decubitus ulcer, stage IV: 85 yo F with pMHx of end-stage parkinsonism and a stage IV sacral decubitus ulcer with underlying osteomyelitis who was admitted on 01/07/21 for altered mental status. Patient was initially started on broad spectrum IV antibiotics given her history of osteomyelitis underlying her sacral ulcer, however they were later discontinued without clinical worsening. After discussion with family, plan is to move towards palliative approach. Awaiting further delineation of goals of care and placement discussion. Possible metabolic encephalopathy in the setting of stage IV decubitus ulcer, hypernatremia, and dehydration with h/o Parkinson's dementia -Likely multifactorial - most likely due to dehydration from poor PO intake in the setting of being on diuretics. -Less likely due to sacral decubitus infection. See management below -Chest x-ray and UA without concern of infection. Head CT negative Sacral decubitus ulcer, stage IV - chronic -Abd/Pelvis CT: Sacral decubitus ulcer which extends to the level of bone. There is mild underlying cortical irregularity and osteomyelitis cannot be excluded -Has had decub ulcer debridement during last admit november 2020 and was noted to have osteomyelitis during operation. -Osteomyelitis - likely not contributing. getting appropriately treated. -patient afebrile, normal HR. WBC normal. blood and wound cultures showing no growth to date. Antibiotics discontinued. -Wound Care Consulted. Consideration for wound VAC placement -cont Fluconazole 200 mg p.o. daily for 6 months from last admission discharge Sacral osteomyelitis -Secondary to sacral ulcer -Management as above Hypernatremia- resolved - Na 145 today, down from 149 - likely 2/2 dehydration/ prerenal - continue IV NSS - trend BMP - Hold lasix COPD -No hypoxia. Clear to auscultation on exam today -SaO2 95% on room air. Goal is to maintain SaO2 between 88 and 92% -No acute exacerbation at this time -Hold DuoNebs as patient not bronchospastic, hypoxic, tachypneic Anemia -Most likely secondary to chronic disease -Baseline hemoglobin is 10 to 11 g/Cristela. On admission hgb 10.3 Parkinsonism -Continue memantine - patient is not on any Parkinson medications - suspect these agents have been trialed in the past and discontinued. -Ambulation with assistance -Continue fall and aspiration precautions Hypertension -holding metoprolol succinate 2/2 bradycardia . Holding Lasix as below -cont Lisinopril 40 mg daily Hypothyroidism: -uncontrolled - TSH elevated to 21 on admission; free T4 low - uncertain if patient has been compliant with home dose of replacement vs. 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 Soft diet and thicken liquids DVT prophylaxis: Heparin 5000 units SQ every 12 hours CODE STATUS: DNR/DNI (POLST form in chart) Dispo: Med Surg. PT/OT recommending SNF at discharge. Palliative consult placed. Admission and Anticipated Discharge Date Admission Date: January 07, 2021 Supervising Physician Co-Signing Physician Notes Resident Physician Supervision Note: I independently interviewed and examined the patient and verified the rubio history and physical, reviewed labs and image studies, discussed the case with the resident Dr. Brumfield and agree with the findings and care plan. Subjective no acute events overnight. Seems to only be eating bites off food tray. patient unable to respond to questions when asked (her baseline). Palliative care team working to communicate with family regarding goals of care Review of Systems Review of Systems: Unobtainable due to cognitive status Physical Exam Constitutional: WD/WN, vitals as above + frail appearing Eyes: + anicteric sclerae ENMT: external ear and nose normal, oropharynx normal Neck: normal visual inspection and trachea midline Respiratory: normal respiratory effort, lungs clear to auscultation Cardiovascular: RRR, no murmur, no edema Skin: no rashes, warm and dry Genitourinary: Mendez catheter in place, draining yellow urine without visible blood clots Results & Data Results & Data ([facility] [place]) Vital Signs (Past 12 Hours) Vital Signs Temp Pulse Resp BP Pulse Ox 01/09/21 07:26 36.8 C 56 L 14 128/61 96 Resident Activity Tracking Resident Involvement: Resident Care Provided Care Provided: Adult Hospital Medicine
[2021-01-09] MEDS ORDERED: DAPTOmycin 275 MG in SYRINGE 0 ML IV SCH (18:00)
[2021-01-10] MEDS: LEVOTHYROXINE SODIUM 88 MCG TABLET PO SCH ×2 (05:48→05:52)
[2021-01-10 06:55] LABS: BUN Creatinine Ratio 28.1 (10-20); Calcium 7.9 mg/dl (8.5-10.1); Creatinine Clr Calc Pharmacy 39.4 ml/min; Est GFR (African American) 94.7; Est GFR (Non-African American) 81.7; Potassium 3.4 mmol/L (3.5-5.1)
[2021-01-10] MEDS: ASPIRIN 81 MG ECTAB PO SCH (09:25)
[2021-01-10] MEDS: DOCUSATE SODIUM 100 MG CAP PO SCH ×2 (09:26→20:06)
[2021-01-10] MEDS: HEPARIN SOD 5,000 UNIT/0.5 ML VIAL SQ SCH ×2 (09:27→20:05)
[2021-01-10] MEDS: CITALOPRAM 20 MG TAB PO SCH (09:27)
[2021-01-10] MEDS: MEMANTINE HCL 5 MG TAB PO SCH ×2 (09:27→20:06)
[2021-01-10] MEDS: FLUCONAZOLE 100 MG TAB PO SCH (09:27)
[2021-01-10] MEDS: TOPIRAMATE 50 MG TAB PO SCH ×2 (09:28→20:06)
[2021-01-10] MEDS: NSS + 20MEQ KCL 20 MEQ/1,000 ML BAG IV SCH ×2 (09:28→20:05)
[2021-01-10] MEDS: POLYETHYLENE (MIRALAX) 17 GM PACK PO SCH (09:28)
[2021-01-10] MEDS: lisinopril 40 MG TAB PO SCH (09:29)
[2021-01-10] MEDS: MULTIVITAMIN TAB PO SCH (09:29)
--- NOTE | 2021-01-10 14:57 | Hospitalist Progress Note ---
Date of Service January 10, 2021 Assessment & Plan (1) Sacral decubitus ulcer, stage IV: 85 yo F with pMHx of end-stage parkinsonism and a stage IV sacral decubitus ulcer with underlying osteomyelitis who was admitted on 01/07/21 for altered mental status. Patient was initially started on broad spectrum IV antibiotics given her history of osteomyelitis underlying her sacral ulcer, however they were later discontinued without clinical worsening. Patient is much more alert and interactive today. After discussion with family, we will be moving toward a palliative approach. Plan to discharge tomorrow with home hospice services. Possible metabolic encephalopathy in the setting of stage IV decubitus ulcer, hypernatremia, and dehydration with h/o Parkinson's dementia -poor PO intake in the setting of being on diuretics. -Less likely due to sacral decubitus infection. See management below -Chest x-ray and UA without concern of infection. Head CT negative Sacral decubitus ulcer, stage IV - chronic -Abd/Pelvis CT: Sacral decubitus ulcer which extends to the level of bone. There is mild underlying cortical irregularity and osteomyelitis cannot be excluded -Has had decub ulcer debridement during last admit november 2020 and was noted to have osteomyelitis during operation. -Osteomyelitis - likely not contributing. getting appropriately treated. -patient afebrile, normal HR. WBC normal. blood and wound cultures showing no growth to date. Antibiotics discontinued. -Wound Care Consulted - appreciate dressing changes. Will refrain from wound vac placement as this would disqualify patient from receiving hospice services. Given her advanced disease and nutritional status, wound unlikely to heal even with vac. -cont Fluconazole 200 mg p.o. daily for 6 months from last admission discharge Sacral osteomyelitis -Secondary to sacral ulcer -Management as above Hypernatremia- improving - Na 146 today, down from 149 - likely 2/2 dehydration/ prerenal - continue IV NSS - trend BMP - Hold lasix COPD -No hypoxia. Clear to auscultation on exam today -SaO2 95% on room air. Goal is to maintain SaO2 between 88 and 92% -No acute exacerbation at this time -Hold DuoNebs as patient not bronchospastic, hypoxic, tachypneic Anemia -Most likely secondary to chronic disease -Baseline hemoglobin is 10 to 11 g/Cristela. On admission hgb 10.3 Parkinsonism -Continue memantine - patient is not on any Parkinson medications - suspect these agents have been trialed in the past and discontinued. -Ambulation with assistance -Continue fall and aspiration precautions Hypertension -holding metoprolol succinate 2/2 bradycardia . Holding Lasix as below -cont Lisinopril 40 mg daily Hypothyroidism: -uncontrolled - TSH elevated to 21 on admission; free T4 low - uncertain if patient has been compliant with home dose of replacement vs. dosing inadequate -Continue home dose levothyroxine 88 mcg daily Chronic diastolic (congestive) heart failure - holding Lasix in the setting of dehydration - gentle IV fluids Stage 3a chronic kidney disease -Cr at baseline -Continue to monitor fluid output Discharge planning - [facility] will be [facility] 01/11/21 FEN/GI: NSS at 80. Soft diet and thicken liquids DVT prophylaxis: Heparin 5000 units SQ every 12 hours CODE STATUS: DNR/DNI (POLST form in chart) Dispo: Med Surg. Plan to discharge on 01/11/21 with [facility] Admission and Anticipated Discharge Date Admission Date: January 07, 2021 Supervising Physician Co-Signing Physician Notes Resident Physician Supervision Note: I independently interviewed and examined the patient and verified the rubio history and physical, reviewed labs and image studies, discussed the case with the resident Dr. Brumfield and agree with the findings and care plan. Subjective no acute events overnight. Today she is more awake, alert and interactive. She responds to questions - although she is confused. She ate a good amount of her breakfast. Review of Systems Review of Systems: Unobtainable due to cognitive status Physical Exam Constitutional: WD/WN, vitals as above + frail appearing Eyes: + anicteric sclerae ENMT: external ear and nose normal, oropharynx normal Neck: normal visual inspection and trachea midline Respiratory: normal respiratory effort, lungs clear to auscultation Cardiovascular: RRR, no murmur, no edema Skin: no rashes, warm and dry Genitourinary: Mendez catheter in place, draining yellow urine without visible blood clots Results & Data Results & Data ([facility]) Vital Signs (Past 12 Hours) Vital Signs Temp Pulse Resp BP Pulse Ox 01/10/21 14:32 36.6 C 68 16 162/85 H 90 01/10/21 07:04 36.5 C 68 16 158/78 H 90 Resident Activity Tracking Resident Involvement: Resident Care Provided Care Provided: Adult [place] [facility]
--- NOTE | 2021-01-10 15:03 | Palliative Care Progress Note ---
Date of Service January 10, 2021 Assessment & Plan (1) Palliative care encounter: I spoke with Loren on the phone. Family has decided to have Gertrudis return home with hospice care. We reviewed services covered and focus of care on comfort. Loren asked if I would call Teresa to discuss with her. I also spoke with Teresa. She asked about wound vac and we discussed that her wound is not likely to heal and that focus is more for keeping it clean and relieving her pain. She had some questions about constipation and is using prune juice and butter with miralax as back up which has been effective for her. We did discuss trying to maximize fluids as much as Gertrudis will tolerate. She has been living away from home to help care for Gertrudis and is feeling stressed. She takes a day a week for herself and her family. We also talked about respite care as part of hospice benefit that she can explore if needed and discuss further with hospice team. Admission and Anticipated Discharge Date Admission Date: January 07, 2021 Subjective Nonverbal today. Closes eyes during conversation. Tolerates bathing and repositioning with no facial grimace or signs of pain. Review of Systems Review of Systems: Unobtainable due to cognitive status Physical Exam Constitutional: + thin; not frail appearing Respiratory: normal respiratory effort; no labored breathing Cardiovascular: Extremities: no edema Gastrointestinal (Abdomen): Inspection/Auscultation: abdomen normal to inspection Musculoskeletal: Extremities: + muscle atrophy contractures Results & Data ([facility]) Vital Signs (Past 12 Hours) Vital Signs Temp Pulse Resp BP Pulse Ox 01/10/21 14:32 97.9 F 68 16 162/85 H 90 01/10/21 07:04 97.7 F 68 16 158/78 H 90 PG Care Time/CCT Total # of Minutes Spent Total Time Spent with Patient: Total time spent is greater than 50% in coordi nation of care (as documented) at patient's floor/unit and/or counseling patient: total time spent is 40 minutes with more than 50% of time spent on goals of care, symptom management and hospice Coding Level of Care Code 19714 Subseq Hosp Care Lvl 3 Diagnoses Palliative care encounter Z51.5
[2021-01-11] MEDS: LEVOTHYROXINE SODIUM 88 MCG TABLET PO SCH ×2 (05:58→06:44)
[2021-01-11] MEDS: NSS + 20MEQ KCL 20 MEQ/1,000 ML BAG IV SCH (06:44)
[2021-01-11] MEDS: POLYETHYLENE (MIRALAX) 17 GM PACK PO SCH (08:07)
[2021-01-11] MEDS: HEPARIN SOD 5,000 UNIT/0.5 ML VIAL SQ SCH (08:07)
[2021-01-11] MEDS: FLUCONAZOLE 100 MG TAB PO SCH (08:07)
[2021-01-11] MEDS: lisinopril 40 MG TAB PO SCH (08:07)
[2021-01-11] MEDS: ASPIRIN 81 MG ECTAB PO SCH (08:07)
[2021-01-11] MEDS: DOCUSATE SODIUM 100 MG CAP PO SCH (08:07)
[2021-01-11] MEDS: MULTIVITAMIN TAB PO SCH (08:07)
[2021-01-11] MEDS: TOPIRAMATE 50 MG TAB PO SCH (08:07)
[2021-01-11] MEDS: CITALOPRAM 20 MG TAB PO SCH (08:07)
[2021-01-11] MEDS: MEMANTINE HCL 5 MG TAB PO SCH (08:54)
--- NOTE | 2021-01-11 14:26 | Discharge Summary ---
Date of Service January 11, 2021 Admission HPI Per Admitting Provider 85-year-old female with past medical history of end-stage parkinsonism, hypertension, hypothyroidism, COPD, CHF (EF 55-60% 05/22/19 w/ grade I diastolic disfunction), CKD 3A presents from home and is accompanied by daughter who provides history. This daughter is separate from the daughter lives with patient. Patient was previously managed for hospital from 10/28/20 - 11/13/20 for concerns of sacral decubitus ulcer and osteomyelitis. She was discharged to a facility where she required IV antibiotics Unasyn for 6 weeks. Wound culture from 11/01 grew Bacteroides thetaiotaomicron and Anaerobic gram positive bacilli. Wound culture from 12/21 growing Pseudomonas mendocina. Most recently patient finished a 14-day course of p.o. Cipro for this. Patient follows with wound care as an outpatient, last seen 01/04/21. Plan was to be seen for a wound vac to be placed today [employer]. However this morning patient was noted to be confused and unresponsive prompting a visit to the ED. Daughter notes that they had an appointment with ID at [facility] [address] on December 23. Additionally notes that prior to this morning patient had no other acute concerns or complaints and seemed at baseline. Pertinent labs: Hemoglobin 10.3, sodium 146, chloride 116, BUN 40, albumin 2.5, TSH 21, free T4 0.74 CXR: No active disease in the chest. Head CT: No acute intracranial findings. Abd/Pelvis CT: Sacral decubitus ulcer which extends to the level of bone. There is mild underlying cortical irregularity and osteomyelitis cannot be excluded ER course: IVF, Rocephin Admission Exam Per Admitting Provider Constitutional: + ill appearing; no acute distress Eyes: PERRL, conjunctivae normal, anicteric sclerae Respiratory: normal respiratory effort, lungs clear to auscultation Cardiovascular: Rate/Rhythm: regular rhythm and + bradycardic Gastrointestinal (Abdomen): normal bowel sounds, soft, nontender, no hepatosplenomegaly Skin: + ulcer (large sacral decubitus ulcer) Psychiatric: Orientation: alert Slow speech suspected to be secondary to parkinsonian characteristics Principal Diagnosis metabolic encephalopathy, progressive parkinson's and parkinson's dementia Discharge Exam Constitutional: WD/WN, vitals as above + frail appearing Eyes: + anicteric sclerae ENMT: external ear and nose normal, oropharynx normal Neck: normal visual inspection and trachea midline Respiratory: normal respiratory effort, lungs clear to auscultation Cardiovascular: RRR, no murmur, no edema Skin: no rashes, warm and dry Genitourinary: Mendez catheter in place, draining yellow urine without visible blood clots Discharge Data Allergies Allergy/AdvReac Type Severity Reaction Status Date / Time baclofen Allergy Intermediate Tremor Verified 01/07/21 10:16 levetiracetam AdvReac Intermediate MADE FEEL Verified 01/07/21 10:16 FUNNY Consultations 01/07/21 13:25 ED Decision to Admit Stat 01/08/21 16:18 Consult Palliative Care Routine Ordered Studies 01/07/21 09:21 CT head/brain wo con Stat 01/07/21 09:25 CT abd pelvis wo con Stat Hospital Course (1) Sacral decubitus ulcer, stage IV: 85 yo F with pMHx of end-stage parkinsonism and a stage IV sacral decubitus ulcer with underlying osteomyelitis who was admitted on 01/07/21 for altered mental status. Disposition -Patient was initially started on broad spectrum IV antibiotics given her history of osteomyelitis underlying her sacral ulcer, however they were later discontinued without clinical worsening. After discussion with family, to move toward a palliative approach. Discharged with home hospice services. Possible metabolic encephalopathy in the setting of stage IV decubitus ulcer, hypernatremia, and dehydration with h/o Parkinson's dementia -Likely multifactorial - most likely due to dehydration from poor PO intake in the setting of being on diuretics. -Less likely due to sacral decubitus infection. See management below -Chest x-ray and UA without concern of infection. Head CT negative Sacral decubitus ulcer, stage IV - chronic -Abd/Pelvis CT: Sacral decubitus ulcer which extends to the level of bone. There is mild underlying cortical irregularity and osteomyelitis cannot be excluded -Has had decub ulcer debridement during last admit november 2020 and was noted to have osteomyelitis during operation. -Osteomyelitis - likely not contributing. getting appropriately treated. -patient afebrile, normal HR. WBC normal. blood and wound cultures showing no growth to date. Antibiotics discontinued. -Wound Care Consulted -wound vac not placed due to decision for comfort care -fluconazole d/luis on discharge. Sacral osteomyelitis -Secondary to sacral ulcer -Management as above Hypernatremia- improving - Na 146 today, down from 149 - likely 2/2 dehydration/ prerenal Parkinsonism -Continue memantine - Home on hospice for progressive decline Hypertension -holding all further blood pressure management Hypothyroidism: -uncontrolled - TSH elevated to 21 on admission; free T4 low - uncertain if patient has been compliant with home dose of replacement vs. dosing inadequate -Continue home dose levothyroxine 88 mcg daily - patient will be [facility] with [facility] on 01/11/21 - Patient resting comfortably at this time Total Time Total Time Spent Total Time Spent (In Minutes): 25 Total Time Includes: Examination of the Patient, Discharge Planning, Medication Reconciliation and Communication With Other Providers Discharge Plan Discharge Items Patient Disposition: Home - Self-Care Reason For Visit: SACRAL ULCER Discharge Diagnosis: Dehydration Condition on Discharge: Good Activity: Resume your previous activity Non-emergency contact: Primary Care Provider Call non-emergency contact if: your symptoms worsen Follow-up/Referrals: Kimberly Michele MD [Primary Care Provider] - (Will not schedule a PCP follow up at this time. Patient is being discharged with hospice care.) Diet: Regular Addtl Attending Provider Instructions: You were hospitalized at [facility] for altered mental status. A cat scan of your head was ordered, which returned normal. A chest X ray showed no evidence of a pneumonia (infection of your lung) and your urine was negative for infection. While you have a known sacral ulcer - our suspicion for an active infection of it was low, although we did treat you with IV antibiotics to be cautious. The cause of your confusion was instead thought to be dehydration. You were treated with IV fluids and your status did improve. We will be discharging you home with hospice care based on your and your families wishes and this seems like a very reasonable choice given your progressive chronic disease. Now that you are on hospice the goals of care have transitioned into a focus on your comfort. For this reason we can discontinue some of your chronic medications. The medications that I would recommend continuing are your breathing medications and your thyroid medication as long as they are making you feel better. Other medications like metoprolol and aspirin and lisinopril and doing any sort of monitoring of your blood pressure will be unnecessary. Your hospice referral is in place and you can work through them and your primary care provider for any needs that arise. We wish you all the best moving forward. Pending Studies at Discharge: Yes Stand-Alone Forms: [facility], Smoking Cessation Medications and DC Order Prescriptions: New polyethylene glycol 3350 [Miralax] 17 gram Powder In Packet 17 g PO DAILY Qty: 0 RF: 0 docusate sodium 100 mg Capsule 100 mg PO BID Qty: 0 RF: 0 Continued acetaminophen [Tylenol] 325 mg tablet 325 mg PO Q4H PRN (Reason: Pain) RF: 0 citalopram 20 mg tablet 20 mg PO DAILY Qty: 30 RF: 2 potassium chloride 20 mEq tablet,ER particles/crystals 20 meq PO DAILY Qty: 30 RF: 5 (DME) Depend Underwear For Women S-M Misc See Rx Instructions .ROUTE .MEDSUPPLY Qty: 84 RF: 0 levothyroxine 88 mcg tablet 88 mcg PO QAM Qty: 90 RF: 1 topiramate 50 mg tablet 150 mg PO BID 30 Days Qty: 180 RF: 5 memantine 5 mg tablet 5 mg PO BID Qty: 60 RF: 5 furosemide 20 mg tablet 20 mg PO DAILY Qty: 30 RF: 2 Combivent Respimat 20-100 mcg/actuation Mist 1 puff INHALATION QID PRN (Reason: Shortness Of Breath Or Wheezing) RF: 0 Breo Ellipta 200-25 mcg/dose Blister With Device 1 inh INHALATION DAILY RF: 0 amino acids-protein hydrolys 15-100 gram-kcal/30 mL Liquid 1 ea PO QAM RF: 0 Discontinued omega-3 fatty acids [Fish Oil Concentrate] 1,000 mg capsule 1,000 mg PO DAILY Qty: 30 RF: 0 multivitamin tablet 1 tab PO DAILY Qty: 30 RF: 0 metoprolol succinate 100 mg tablet extended release 24 hr 100 mg PO DAILY Qty: 30 RF: 5 lisinopril 40 mg tablet 40 mg PO QAM Qty: 30 RF: 3 Ensure High Protein Liquid 1 ea PO DAILY Qty: 30 RF: 0 miscellaneous [facility] See Rx Instructions .ROUTE .COMPLEX Qty: 1 RF: 0 fluconazole 200 mg tablet 200 mg PO QAM 180 Days Qty: 180 RF: 0 cholecalciferol (vitamin D3) [Vitamin D3] 50 mcg (2,000 unit) Capsule 50 mcg PO DAILY RF: 0 aspirin 81 mg Tablet,Chewable 81 mg PO DAILY RF: 0 Discharge Orders: Discharge Order (Routine); Ordered 01/11/21 Ordered By: Vidal Lyles Admission Data Admit Date/Time: 01/07/21 15:05 Attending Provider: Janie Knight Admit Provider: Janie Knight Primary Care Provider: Kimberly Michele Other Providers: Lulu Nuñez ; [facility] ; Alannah Feng ; [facility] Other Interventions: Discharge Summary Assessment (RN) Last Done: 01/11/21 12:24 Supervising Physician Co-Signing Physician Notes Resident Physician Supervision Note: I independently interviewed and examined the patient and verified the rubio history and physical, reviewed labs and image studies and agree with resident Dr. Lyles findings and care plan. Resident Activity Tracking Resident Involvement: Resident Care Provided Care Provided: Adult Hospital Medicine
== END 2021-01-11 17:16 | disposition home or self-care (01) | DRG 640 ==
LOC: ED 09:01 → 3W 15:05